=== PATIENT | female | born 1955 | race Caucasian/White ===

== ENCOUNTER → 2018-01-12 | Outpatient (CLI) | payer OTHER ==
[~2018-01-12] MED LIST: ASCO10003 PO; ATOR-24 PO; BUPR-79 PO; CHN/1 PO; CHOL100010 PO; FRS/40 PO; GLC/500 PO; MONT1TAB5 PO; MULT-506 PO; NIAC500T11 PO; OMEG10007 PO; PRLSR20 PO; RANI300T2 PO; ROPI1TAB PO; TRAZ50TA35 PO; VITACAP37 PO
== END | disposition home or self-care (01) ==
LOC: C.CPL 14:15
PROVIDERS: ATTEND Orthopaedic Surgery Sports Medicine
DX: S83.232D Complex tear of medial meniscus, current injury, left knee, subsequent encounter (principal); X58.XXXD Exposure to other specified factors, subsequent encounter

== ENCOUNTER 2023-06-05 06:08 | Inpatient (IN) ==
--- NOTE | 2023-05-11 11:25 | PAT Medication Instructions ---
Medication Instructions Date of Service May 11, 2023 Home Medications albuterol sulfate 90 mcg/actuation breath activated powder inhaler,sensor 2 inh inhalation Q6H PRN Wheezing amitriptyline 50 mg tablet 50 mg PO HS ascorbic acid (vitamin C) 1,000 mg tablet (Vitamin C) 2,000 mg PO QAM atorvastatin 80 mg tablet (Lipitor) 80 mg PO PM bupropion HCl 300 mg 24 hr tablet, extended release 300 mg PO QAM fluticasone propionate 50 mcg/actuation nasal spray,suspension 2 spray intran walt QAM furosemide 40 mg tablet 40 mg PO QAM montelukast 10 mg tablet 10 mg PO QAM multivitamin 1 tab PO QAM omeprazole 20 mg tablet,delayed release 20 mg PO BID ropinirole 1 mg tablet 1 mg PO HS vitamin B complex 1 tab PO QAM vitamin E 268 mg (400 unit) capsule 400 unit PO BID acetaminophen 500 mg tablet (Tylenol Extra Strength) 1,000 mg PO Q8 PRN Pain fluticasone furoate 100 mcg-vilanterol 25 mcg/dose inhalation powder (Breo Ellipta) 1 inh inhalation QAM lutein 20 mg-zeaxanthin 1,000 mcg capsule 1 cap PO QAM niacin 500 mg tablet 500 mg PO BID omega-3 fatty acids-fish oil 684 mg-1,200 mg capsule,delayed release 1 cap PO BID varenicline 1 mg tablet (Chantix) 1 mg PO BID MEDICATION INSTRUCTIONS: Continue as directed albuterol sulfate 90 mcg/actuation breath activated powder inhaler,sensor 2 inh inhalation Q6H PRN Wheezing (use if needed; BRING TO HOSPITAL) fluticasone furoate 100 mcg-vilanterol 25 mcg/dose inhalation powder (Breo Ellipta) 1 inh inhalation QAM fluticasone propionate 50 mcg/actuation nasal spray,suspension 2 spray intranasal QAM STOP taking 2 weeks before surgery omega-3 fatty acids-fish oil 684 mg-1,200 mg capsule,delayed release 1 cap PO BID vitamin E 268 mg (400 unit) capsule 400 unit PO BID lutein 20 mg-zeaxanthin 1,000 mcg capsule 1 cap PO QAM STOP taking 24 hours before surgery niacin 500 mg tablet 500 mg PO BID DO NOT take the morning of surgery ascorbic acid (vitamin C) 1,000 mg tablet (Vitamin C) 2,000 mg PO QAM multivitamin 1 tab PO QAM furosemide 40 mg tablet 40 mg PO QAM vitamin B complex 1 tab PO QAM varenicline 1 mg tablet (Chantix) 1 mg PO BID Take morning of surgery With a small sip of water, OTHERWISE NOTHING TO EAT OR DRINK AFTER MIDNIGHT: bupropion HCl 300 mg 24 hr tablet, extended release 300 mg PO QAM omeprazole 20 mg tablet,delayed release 20 mg PO BID acetaminophen 500 mg tablet (Tylenol Extra Strength) 1,000 mg PO Q8 PRN Pain (if needed) Take evening before surgery ropinirole 1 mg tablet 1 mg PO HS atorvastatin 80 mg tablet (Lipitor) 80 mg PO PM omeprazole 20 mg tablet,delayed release 20 mg PO BID acetaminophen 500 mg tablet (Tylenol Extra Strength) 1,000 mg PO Q8 PRN Pain ( if needed) varenicline 1 mg tablet (Chantix) 1 mg PO BID Other Notes CHECK WITH PRESCRIBER FOR INSTRUCTIONS: amitriptyline 50 mg tablet 50 mg PO HS If you have any questions please call us at [phone] or [phone] or [phone] or [phone]
--- NOTE | 2023-05-22 10:50 | Anesthesiology Consultation ---
Date of Service May 22, 2023 Assessment & Plan (1) Encounter for pre-operative examination: - Check BSG AM DOS - Infectious disease screening: Per assessment on 05/22/23: No known infectious disease contacts or current infectious disease symptoms. No noted Covid positive test result in past 90 days. Chart Review Chart Review: Acceptable Risk for Surgery and Patient seen in Pre Admission Testing Teaching & Discussion Pre-Anesthesia Teaching/Discussion Notes: Instructed NPO after midnight before surgery,except medications with 15 cc of water. Medication instructions provided according to the PAT guidelines. History Surgery Operation Date: 06/05/23 10:05 Proposed Procedures p T10-12 Decompression, L1-S1 Hardware Removal, L1-S1 Instrumentation, Spinal Cord Monitoring - Chandana James, Height/Weight Height: 5 ft 4.5 in Weight: 104.9 kg Allergies Allergy/AdvReac Type Severity Reaction Status Date / Time morphine AdvReac Mild Migraines Verified 05/11/23 10:09 Medications Home Medications Medication Instructions Recorded Confirmed Last Taken albuterol sulfate 90 mcg/actuation 2 inh inhalation Q6H PRN Wheezing 01/05/21 05/11/23 02/09/21 10:00 breath activated powder inhaler,sensor amitriptyline 50 mg tablet 50 mg PO HS 01/05/21 05/11/23 02/09/21 22:00 ascorbic acid (vitamin C) 1,000 mg 2,000 mg PO QAM 01/05/21 05/11/23 02/09/21 08:00 tablet (Vitamin C) atorvastatin 80 mg tablet (Lipitor) 80 mg PO PM 01/05/21 05/11/23 02/09/21 22:00 bupropion HCl 300 mg 24 hr tablet, 300 mg PO QAM 01/05/21 05/11/23 02/09/21 08:00 extended release fluticasone propionate 50 2 spray intranasal QAM 01/05/21 05/11/23 02/09/21 08:00 mcg/actuation nasal spray,suspension furosemide 40 mg tablet 40 mg PO QAM 01/05/21 05/11/23 02/09/21 08:00 montelukast 10 mg tablet 10 mg PO QAM 01/05/21 05/11/23 02/09/21 08:00 multivitamin 1 tab PO QAM 01/05/21 05/11/23 02/09/21 08:00 omeprazole 20 mg tablet,delayed 20 mg PO BID 01/05/21 05/11/23 02/09/21 22:00 release ropinirole 1 mg tablet 1 mg PO HS 01/05/21 05/11/23 02/09/21 22:00 vitamin B complex 1 tab PO QAM 01/05/21 05/11/23 02/09/21 08:00 vitamin E 268 mg (400 unit) capsule 400 unit PO BID 01/05/21 05/11/23 01/27/21 acetaminophen 500 mg tablet 1,000 mg PO Q8 PRN Pain 05/11/23 05/11/23 Unknown (Tylenol Extra Strength) fluticasone furoate 100 1 inh inhalation QAM 05/11/23 05/11/23 Unknown mcg-vilanterol 25 mcg/dose inhalation powder (Breo Ellipta) lutein 20 mg-zeaxanthin 1,000 mcg 1 cap PO QAM 05/11/23 05/11/23 Unknown capsule niacin 500 mg tablet 500 mg PO BID 05/11/23 05/11/23 Unknown omega-3 fatty acids-fish oil 684 1 cap PO BID 05/11/23 05/11/23 Unknown mg-1,200 mg capsule,delayed release varenicline 1 mg tablet (Chantix) 1 mg PO BID 05/11/23 05/11/23 Unknown Past Medical History Medical History Hypertension Obesity IBS (irritable bowel syndrome) Arthritis GERD (gastroesophageal reflux disease) controlled Diabetes mellitus, type 2 Currently diet controlled (hx Metformin) Depression Anxiety Migraine Hx Restless leg syndrome Hyperlipidemia Chronic obstructive pulmonary disease stable CKD (chronic kidney disease) stage 3, GFR 30-59 ml/min Scoliosis of lumbosacral spine Exercise / Class Metabolic Activity III < 4 Walking/Shop/Light housework Past Family History Family History Other No family history of adverse response to anesthesia No known health problems Past Surgical History Surgical History History of esophagogastroduodenoscopy (EGD) S/P total knee replacement Left TKA (02/10/21): SAB x1 attempt + PNB at [facility] History of tonsillectomy History of adenoidectomy History of hysterectomy TATE with BSO History of back surgery L1-S1 decompression/fusion (05/26/16): Grade 1 view, MAC#3, ETT 7.0 at [facility] History of colonoscopy Past Anesthesia History No Hx of Anesthesia Complications and No Family Hx of Anesthesia Complications History of PONV No Hx of PONV and Hx of Motion Sickness (Occasional) Social History Smoking Status: Former smoker Do You Dip or Chew Tobacco: No Smoking End Date: Quit 03/2023 Hx Alcohol Use: No Hx Substance Use: No Review of Systems Occasional wheezing r/t asthma Patient denies chest pain, shortness of breath, fever, chills, cough, palpitations. Physical Exam Vital Signs VITALS BP 112/73 P 91 TEMP 98.3 SP02 95%RA RESP 18 PHYSICAL Full cervical extension range of motion. Full TMJ range of motion. TMD 3.5 finger breaths Mallampati Score 2 Dentition: upper/lower partials Lungs: clear throughout to auscultation Cardiac: regular rate and rhythm, I/ systolic murmur Spine: normal Carotid arteries: negative bruit Extremities: no LE edema Lab Results Anesthesia Preop Results Results Anesthesia Widget: WBC 8.46 K/ul (4.8-10.8) 05/22/23 Hgb 12.7 g/dl (12.0-16.0) 05/22/23 Hct 36.9 % (37.0-47.0) L 05/22/23 Plt 240 K/uL (130-400) 05/22/23 Na 140 mmol/L (136-145) 05/22/23 K 4.1 mmol/L (3.5-5.1) 05/22/23 Cl 105 mmol/L (98-107) 05/22/23 CO2 28 mmol/L (21-32) 05/22/23 BUN 19 mg/dl (6-23) 05/22/23 Creat 0.99 mg/dl (0.6-1.2) 05/22/23 Glucose Level 90 mg/dl (70-99(Fasting)) 05/22/23 PT 10.8 Seconds (9.0-12.0) 05/22/23 PTT 24.8 Seconds (21.0-31.0) 05/22/23 INR 1.0 (0.9-1.1) 05/22/23 HA1c 6.2 % (4.5-5.6) H 05/22/23 Urine Color Yellow 05/22/23 Urine Appearance Clear (Clear) 05/22/23 Urine pH 7.0 (4.5-7.5) 05/22/23 Urine Specific [place] 1.007 (1.000-1.030) 05/22/23 Urine Protein Negative (Negative) 05/22/23 Urine Glucose (UA) Negative (Negative) 05/22/23 Urine Ketones Negative (Negative) 05/22/23 Urine Blood Negative (Negative) 05/22/23 Urine Nitrite Negative (Negative) 05/22/23 Urine Bilirubin Negative (Negative) 05/22/23 Urine Urobilinogen Negative (Negative) 05/22/23 Urine Leukocyte Esterase 1+ (Negative) H 05/22/23 Urine WBC (Auto) 1-5 /hpf (0-5) 05/22/23 Urine RBC (Auto) 5-10 /hpf (0-4) H 05/22/23 Urine Hyaline Casts (Auto) 0 /lpf (0-5) 05/22/23 Urine Epithelial Cells (Auto) 5-10 /lpf (0-5) H 05/22/23 Urine Bacteria (Auto) 4+ (Negative) H 05/22/23 Blood Type B Positive 05/22/23 Antibody Screen NEGATIVE 05/22/23 Testing Laboratory Results Surgeon's office made aware of abnormal UA* Electrocardiogram Date: 05/22/23 NSR at 91bpm. Echocardiogram Date: 04/05/17 LVEF 55-59%. LV wall motion is normal. Borderline increased concentric LV wall thickness. Grade 1 diastolic dysfunction. No significant valvular disease. Other Testing Chest CT Date: 01/19/23 Moderate calcification of the thoracic aorta. Degenerative changes of the spine. Partially imaged lumbar spinal fixation hardware. Scattered centrilobular nodules and tree-in-bud opacities in the upper lung zones, probably related to smoking related interstitial lung disease such as RB-ILD. Mild emphysema. Mild linear scarring in the left midlung. Recommendations: Continued routine annual CT lung cancer screening.
[~2023-06-05 06:08] MED LIST changes: +ACETAMINOPHEN 500 MG TAB PO SCH; -ASCO10003 PO; -ATOR-24 PO; -BUPR-79 PO; -CHN/1 PO; -CHOL100010 PO; +CeleBREX 200 MG CAP PO SCH; -FRS/40 PO; +GABAPENTIN 300 MG CAP PO SCH; -GLC/500 PO; +LR 15ML/HR IV SCH; +LR 60ML/HR IV SCH; -MONT1TAB5 PO; -MULT-506 PO; -NIAC500T11 PO; -OMEG10007 PO; -PRLSR20 PO; -RANI300T2 PO; -ROPI1TAB PO; -TRAZ50TA35 PO; -VITACAP37 PO
--- OUTSIDE RECORDS SUMMARY | 2023-06-05 06:14 | External Medical Summary | Summary of Care ---
Author Name Unknown Organization [facility] [address] [address] Phone [phone] Care Team Providers Care Reed Man Name Role Phone Mc South MD Primary Care Provide r Reason for Visit * Reason Comments Physical-Exam Encounter Details Date Type Department Care Team (Latest Contact Info) Description 05/24/2023 10:00 AM EST Office Visit Family Medicine [address] [phone] Nhung Haddad, REBA [address] [place] [address] [place] [address] Preop examination*; Pre-operative cardiovascular examination; Urinary tract infection without hematuria, site unspecified Allergies Active Allergy Reactions Criticality Noted Date Comments Morphine Sulfate Low 09/09/2010 migraines documented as of this encounter (statuses as of 05/24/2023) Medications Medication Sig Dispensed Refills Start Date End Date Status MULTIVITAMINS PO TABS one by mouth daily 0 Active VITAMIN B COMPLEX PO CAPS one by mouth daily 0 Active vitamin e 100 UNIT Capsule Take 1 Capsule by mouth in the morning. 0 Active Lutein-Zeaxanthi n 25-5 MG CAPS Take by mouth every morning. 0 Active Ibuprofen 800 MG Oral Tablet (Motrin)Indicati ons:Painful respiration TAKE ONE TABLET BY MOUTH THREE TIMES A DA Y WITH FOOD NEEDED FOR PAIN 90 Tab 1 03/04/2021 Active Fish Oil 1000 MG Oral Capsule Take 1 Capsule by mouth in the morning and 1 Capsule before bedtime. 0 Active Vitamin C 100 MG Oral Tablet Chewable Take 1 Tablet by mouth in the morning. 0 Active Fluticasone Furoate-Vilanter ol 100-25 MCG/ACT Inhalation Aerosol Powder Breath Activated (BREO ellipta)Indicati ons:Moderate COPD (chronic obstructive pulmonary disease) ([facility]) INHALE ONE PUFF BY MOUTH IN THE MORNING 180 Each 3 12/23/2022 4 Active Albuterol Sulfate HFA 108 (90 Base) MCG/ACT Inhalation Aerosol SolutionIndicati ons:Moderate COPD (chronic obstructive pulmonary disease) ([facility]) INHALE TWO PUFFS BY MOUTH EVERY 4 HOURS NEEDED FOR WHEEZING 54 g 3 12/23/2022 4 Active Fluticasone Propionate 50 MCG/ACT Nasal Suspension (Flonase)Indicat ions:Chronic rhinitis ADMINISTER 2 SPRAYS INTO EACH NOSTRIL IN THE MORNING 48 g 5 04/22/2022 3 Active Atorvastatin Calcium 80 MG Oral Tablet (Lipitor)Indicat ions:Metabolic syndrome Take 1 Tablet by mouth at bedtime. 90 Tablet 3 03/09/2023 Active rOPINIRole HCl 1 MG Oral Tablet (Requip)Indicati ons:Periodic limb movement disorder TAKE 1 TABLET BY MOUTH DAILY BEFORE BEDTIME FOR RESTLESS 90 Tablet 1 04/05/2023 4 Active Furosemide 40 MG Oral Tablet (Lasix)Indicatio ns:Edema TAKE ONE TABLET BY MOUTH EVERY DAY NEEDED FOR FLUID ACCUMULATION OR WEIGHT GAIN 90 Tablet 0 04/05/2023 4 Active Omeprazole 20 MG Oral Capsule Delayed Release (PriLOSEC) TAKE ONE CAPSULE BY MOUTH EVERY MORNING AND 1 CAPSULE BEFORE BEDTIME 180 Capsule 0 04/05/2023 4 Active buPROPion HCl ER (XL) 300 MG Oral Tablet Extended Release 24 Hour (Wellbutrin XL)Indications:D epression TAKE ONE TABLET BY MOUTH EVERY MORNING 90 Tablet 0 04/05/2023 4 Active Montelukast Sodium 10 MG Oral Tablet (Singulair)Indic ations:Moderate COPD (chronic obstructive pulmonary disease) ([facility]) TAKE ONE TABLET BY MOUTH EVERY MORNING 90 Tablet 0 04/05/2023 4 Active Amitriptyline HCl 50 MG Oral Tablet (Elavil)Indicati ons:Persistent insomnia,Migrain e variant TAKE ONE TABLET BY MOUTH EVERY DAY BEFORE BEDTIME 90 Tablet 0 04/05/2023 4 Active Niacin 500 MG Oral Tablet (Niacin) Take 1 Tablet by mouth 2 times a day with morning and evening meals. 0 05/24/2023 Active Varenicline Tartrate(Continu e) 1 MG Oral Tablet Take 1 mg by mouth in the morning and 1 mg in the evening. 60 Tablet 1 05/24/2023 Active Sulfamethoxazole -Trimethoprim 800-160 MG Oral Tablet (Bactrim DS)Indications:U rinary tract infection without hematuria, site unspecified Take 1 Tablet by mouth in the morning and 1 Tablet before bedtime. Do all this for 7 days. Until gone. 14 Tablet 0 05/24/2023 3 Active Benzonatate 100 MG Oral CapsuleIndicatio ns:Bronchitis, complicated Take 1 Capsule by mouth 3 times a day as needed for Cough. 30 Capsule 1 11/04/2022 3 Discontinue d(Patient preference/ discontinua tion) predniSONE 20 MG Oral Tablet (Deltasone)Indic ations:Moderate COPD (chronic obstructive pulmonary disease) ([facility]) 1 tab 3 times a day for 3 days, then 1 tab 2 times a day for 3 days, then 1 tab daily for 3 days 18 Tablet 0 12/23/2022 3 Discontinue d(Patient preference/ discontinua tion) Varenicline Tartrate (Starter) 0.5 MG X 11 & 1 MG X 42 Tablet Therapy Pack Take 0.5 mg twice daily for 3 days, then 0.5 mg twice daily for 4 days and then 1 mg twice daily 53 Each 0 04/26/2023 3 Discontinue d(Patient preference/ discontinua tion) Varenicline Tartrate(Continu e) 1 MG Oral Tablet Take 1 mg by mouth in the morning and 1 mg in the evening. 60 Tablet 1 04/26/2023 3 Discontinue d(Refill) documented as of this encounter (statuses as of 05/24/2023) Active Problems Problem Noted Date Diagnosed Date Severe obesity with body mas s index (BMI) of 35.0 to 39.9 with serious comorbidity 12/17/2021 History of colon polyps 12/06/2021 Moderate episode of recurrent major depressive d isorder 06/04/2019 Gastroesophageal reflux disease 07/21/2017 Postmenopausal atrophic vaginitis 07/21/2017 Persistent insomnia 02/16/2015 IBS (irritable bowel syndrome) 01/16/2015 Hypertriglyceridemia 08/19/2013 Periodic limb movement disorder 03/18/2011 Metabolic syndrome 04/08/2010 Macular degeneration 02/03/2010 VARIANTS OF MIGRAINE WITHOUT MENTION OF INTRACTABLE MIGRAINE 03/02/2006 Lumbar disc disease Hyperlipidemia with target LDL less than 100 Overview: ICD-10 update of inactive term Tobacco use disorder Moderate COPD (chronic obstructive pulmonary dis ease) documented as of this encounter (statuses as of 05/24/2023) Resolved Problems Problem Noted Date Diagnosed Date Resolved Date Stage 3a chronic kidney disease 12/23/2022 01/05/2023 Prediabetes 11/17/2021 07/07/2022 Kidney disease, chronic, sta ge III (GFR 30-59 ml/min) 07/07/2014 01/05/2023 Kidney disease, chronic, sta ge III (GFR 30-59 ml/min) 08/19/2013 01/20/2014 Overview: Per CKD protocol #1 Body mass index (BMI) of 40.0-44.9 in adult 04/08/2010 01/25/2016 Overview: ICD-10 update of inactive term Dyslipidemia, goal LDL below 130 04/08/2010 09/11/2013 MEDICATION USE AGREEMENT 04/08/201012/2013 Obesity, morbid (more than 1 00 lbs over ideal weight or BMI > 40) 09/22/2009 04/08/2010 Overview: Per Obesity Taxonomy ICD-10 update of inactive term Dyslipidemia, goal to be determined 06/09/2009 09/17/2009 Overview: Per Lipid Taxonomy. Obesity, BMI not known 09/04/200809/22 Overview: Per Obesity Taxonomy Benign neoplasm of colon 12/17/2007 Overview: hyperplastic/repeat colonoscopy in 1 yr Tobacco use disorder 09/08/2007 009 Depression 03/02/2006 06/04/2019 Mixed dyslipidemia 9 Overview: Per Lipid Taxonomy. Colon polyps 12/06/2021 Bronchospasm 06/14/2021 documented as of this encounter (statuses as of 05/24/2023) Immunizations Name Administration Dates Next Due COVID-19 mRNA, LNP-s, No Pre serve, 2-Dose Series (Moderna) 01/07/2022,05/19/2021,10/09/2020,09/11 COVID-19, MRNA-LNP, 23-24, P F, 30 MCG/0.3 mL, 12 YRS AND ABOVE, [facility] 04/18/2023 Covid-19, Mrna, Lnp-s, Pf, B ivalent, 50 Mcg, IM, 12 yrs and above (Moderna) 04/25/2022 Pneumococcal Conjugate Vacc, 13 Valent (Prevnar) 08/02/2016 Pneumococcal Conjugate Vacci ne, 20-valent ([id number]) 12/17/2021 Pneumococcal Polysaccharide PPV23 (Pneumovax) 01/03/2012 SEASONAL INFLUENZA, PF, 6 M & Above, IM , (FLULAVAL or FLUZONE) 04/03/2020,04/19/2018,04/04/2017 Seasonal Influenza Virus Vac cine, Unspecified Formulation 03/27/2019 Seasonal Influenza, Quadriva lent Hd (Fluzone Hd) 04/01/2023,04/22/2022,06/14/2021 Seasonal Influenza, Quadriva lent, No Preserve, IM 03/30/2016 Seasonal Influenza, Split, I IV3, With Preserve, Inj 03/17/2015,04/18/2014,03/21/2013,03/18,04/26/2010,03/19/2009,05/02/2008 TDAP (age 10 and older)(Boostrix) 01/04/2018 TDAP (age 11 and older)(Adacel) 12/21/2007 Varicella Zoster Vaccine (Adult) 01/25/2016 Zoster Vaccine Recombinant (Shingrix) 11/09/2018 ,05/14/2018 documented as of this encounter Social History Tobacco Use Types Packs/Day Years Used Date Smoking Tobacco: Some Days Cigarettes 1 33 Smokeless Tobacco: Never Tobacco Cessation:Ready to Q uit: Not Asked; Counseling Given: Not Answered Comments:Trying to quit. About 3/4 PPD now 06/21/22 Alcohol Use Standard Drinks/Week Comments No 0 (1 standard drink = 0.6 oz pur e alcohol) PHQ-2 Answer Date Recorded PHQ Adult Total Score 0 12/11/2020 Hunger Vital Sign Answer Date Recorded Within the past 12 months, y ou worried that your food would run out before you got the money to buy more. Never true 12/12/19 21 Within the past 12 months, t he food you bought just didn't last and you didn't have money to get more. Never true 12/11/2020 Sex and Gender Information Value Date Recorded Sex Assigned at Not on file Gender Identity Female 01/01/2023 12:59 PM EDT Sexual Orientation Not on file Job Start Date Occupation Industry Not on file Not on file Not on file documented as of this encounter Last Filed Vital Signs Vital Sign Reading Time Taken Comments Blood Pressure 136/64 05/24/2023 9:51 AM EST Pulse 74 05/24/2023 9:51 AM EST Temperature 36.2 C (97.1 F) 05/24/2023 9:51 AM ES T Respiratory Rate 18 05/24/2023 9:51 AM EST Oxygen Saturation - - Inhaled Oxygen Concentration - - Weight 100.7 kg (222 lb) 05/24/2023 9:51 AM EST Height 162.6 cm (5' 4") 05/24/2023 9:51 AM EST Body Mass Index 38.11 05/24/2023 9:51 AM EST documented in this encounter Progress Notes * Nhung Haddad PA-C - 05/24/2023 9:56 AM EST Nursing Notes: Olivia Norman, EN 05/24/23 [id number] Signed Pre-Op for Spine Surgery 06/05/23, also asking for refill of Chantix Pt here today for preop for spinal fusion. Surgery is scheduled for 06/05/23 - with Dr. James. Pt already had labs and EKG. All normal. Per urinalysis, she does have UTI. Start bactrim for a week. Review of patient's allergies indicates: Allergen Reactions Morphine Sulfate migraines Current Outpatient Medications Medication Sig Dispense Refill Atorvastatin Calcium 80 MG Oral Tablet (Lipitor) Take 1 Tablet by mouth at bedtime. 90 Tablet 3 rOPINIRole HCl 1 MG Oral Tablet (Requip) TAKE 1 TABLET BY MOUTH DAILY BEFORE BEDTIME FOR RESTLESS 90 Tablet 1 Furosemide 40 MG Oral Tablet (Lasix) TAKE ONE TABLET BY MOUTH EVERY DAY NEEDED FOR FLUID ACCUMULATION OR WEIGHT GAIN 90 Tablet 0 Omeprazole 20 MG Oral Capsule Delayed Release (PriLOSEC) TAKE ONE CAPSULE BY MOUTH EVERY MORNING AND 1 CAPSULE BEFORE BEDTIME 180 Capsule 0 buPROPion HCl ER (XL) 300 MG Oral Tablet Extended Release 24 Hour (Wellbutrin XL) TAKE ONE TABLET BY MOUTH EVERY MORNING 90 Tablet 0 Montelukast Sodium 10 MG Oral Tablet (Singulair) TAKE ONE TABLET BY MOUTH EVERY MORNING 90 Tablet 0 Amitriptyline HCl 50 MG Oral Tablet (Elavil) TAKE ONE TABLET BY MOUTH EVERY DAY BEFORE BEDTIME 90 Tablet 0 MULTIVITAMINS PO TABS one by mouth daily VITAMIN B COMPLEX PO CAPS one by mouth daily vitamin e 100 UNIT Capsule Take 1 Capsule by mouth in the morning. Lutein-Zeaxanthin 25-5 MG CAPS Take by mouth every morning. Ibuprofen 800 MG Oral Tablet (Motrin) TAKE ONE TABLET BY MOUTH THREE TIMES A DA Y WITH FOOD NEEDED FOR PAIN 90 Tab 1 Fish Oil 1000 MG Oral Capsule Take 1 Capsule by mouth in the morning and 1 Capsule before bedtime. Vitamin C 100 MG Oral Tablet Chewable Take 1 Tablet by mouth in the morning. Benzonatate 100 MG Oral Capsule Take 1 Capsule by mouth 3 times a day as needed for Cough. 30 Capsule 1 predniSONE 20 MG Oral Tablet (Deltasone) 1 tab 3 times a day for 3 days, then 1 tab 2 times a day for 3 days, then 1 tab daily for 3 days 18 Tablet 0 Fluticasone Furoate-Vilanterol 100-25 MCG/ACT Inhalation Aerosol Powder Breath Activated (BREO ellipta) INHALE ONE PUFF BY MOUTH IN THE MORNING 180 Each 3 Albuterol Sulfate HFA 108 (90 Base) MCG/ACT Inhalation Aerosol Solution INHALE TWO PUFFS BY MOUTH EVERY 4 HOURS NEEDED FOR WHEEZING 54 g 3 Fluticasone Propionate 50 MCG/ACT Nasal Suspension (Flonase) ADMINISTER 2 SPRAYS INTO EACH NOSTRIL IN THE MORNING 48 g 5 Varenicline Tartrate(Continue) 1 MG Oral Tablet Take 1 mg by mouth in the morning and 1 mg in the evening. 60 Tablet 1 No current facility-administered medications for this visit. Past Medical History: Diagnosis Date Benign neoplasm of colon 12/17/07 hyperplastic/repeat colonoscopy in 1 yr Benign neoplasm of colon 12/10/10 adenomatous tissue Bronchospasm Colon polyps 02/14/2014 adenomatous polyps, repeat 3 yrs Depressive disorder, not elsewhere classified Dysmetabolic syndrome X Endometriosis of other specified sites 1988 hysterectomy,abd Examination of eyes and vision 09/11/13 no diabetic retinopathy Hyperlipidemia LDL goal < 100 Lumbar disc disease Macular degeneration (senile) of retina, unspecified Migraine variant Mixed dyslipidemia Moderate COPD (chronic obstructive pulmonary disease) ([facility]) Tobacco use disorder Social History Socioeconomic History Marital status: Spouse name: Not on file Number of children: 1 Years of education: Not on file Highest education level: Not on file Occupational History Occupation: laborer concrete paving Employer: [employer] [address] Tobacco Use Smoking status: Some Days Packs/day: 1.00 Years: 33.00 Additional pack years: 0.00 Total pack years: 33.00 Types: Cigarettes Smokeless tobacco: Never Tobacco comments: Trying to quit. About 3/4 PPD now 06/21/22 Vaping Use Vaping Use: Never used Substance and Sexual Activity Alcohol use: No Drug use: No Sexual activity: Yes control/protection: Surgical Other Topics Concern Service Not Asked Blood Transfusions No Caffeine Concern Not Asked Occupational Exposure Not Asked Hobby Hazards Not Asked Sleep Concern Not Asked Stress Concern Not Asked Weight Concern Not Asked Special Diet Not Asked Back Care Not Asked Exercise Not Asked Bike Helmet Not Asked Seat Belt Not Asked Self-Exams Not Asked Social History Narrative Not on file Social Determinants of Health Financial Resource Strain: Not on file Food Insecurity: No Food Insecurity (12/11/2020) Hunger Vital Sign Worried About Running Out of Food in the Last Year: Never true Ran Out of Food in the Last Year: Never true Transportation Needs: Not on file Physical Activity: Not on file Stress: Not on file Social Connections: Not on file Intimate Partner Violence: Not on file Housing Stability: Not on file Past Surgical History: Procedure Laterality Date COLONOSCOPY W/ BLEEDING CONTROL 12/17/2007 hyperplastic, repeat in 1 year COLONOSCOPY W/ LESION REMOVAL, SNARE 12/10/2010 adenomatous tissue COLONOSCOPY W/ SUBMUCOUS INJ 12/10/2010 COLONOSCOPY, DIAGNOSTIC (RECTUM) 02/14/2014 adenomatous polyps, repeat 3 yrs/COLONOSCOPY FLEXIBLE PROXIMAL DIAGNOSTIC performed by Ruben Arellano MD at [facility] COLONOSCOPY, DIAGNOSTIC (RECTUM) 05/26/2017 adenomatous & hyperplastic polyps, repeat 5 yrs/COLONOSCOPY FLEXIBLE PROXIMAL DIAGNOSTIC performed by Ruben Arellano MD at [facility] COLONOSCOPY, DIAGNOSTIC (RECTUM) 06/23/2022 benign adenomatous polyps, repeat 3 yrs / COLONOSCOPY FLEXIBLE PROXIMAL DIAGNOSTIC performed by Ruben Arellano MD at [facility] EGD, FLEXIBLE, DIAGNOSTIC 05/10/2013 UPPER GI ENDOSCOPY DIAGNOSTIC performed by Lauren Villela DO at [facility]COPY [facility] INJECTION LUMBAR/SACRAL 06/22/2015 INJECTION SPINE LUMBAR OR SACRAL performed by Spike B Cousins, DO at OR [facility] INJECTION LUMBAR/SACRAL 07/17/2015 INJECTION SPINE LUMBAR OR SACRAL performed by Spike B Cousins, DO at OR [facility] INJECTION LUMBAR/SACRAL 10/09/2015 INJECTION SPINE LUMBAR OR SACRAL performed by [facility] Cousins, DO at OR [facility] INJECTION LUMBAR/SACRAL 02/26/2016 INJECTION SPINE LUMBAR OR SACRAL performed by [facility] Cousins, DO at [facility] MAMMOGRAM SCREENING BILATERAL 10/10/2013 almost entirely fat, category 1 normal MAMMOGRAM SCREENING BILATERAL Bilateral 11/03/2016 almost entirely fat, category 2 CT TOTAL KNEE ARTHROPLASTY Left 02/10/2021 Dr. Condon [facility] REMOVAL OF UTERUS LESION 1988 abd hysterectomy REMOVE TONSILS & ADENOIDS, UNDER 12 SPINAL FUSION, LUMBAR, COMBINED 06/02/2016 [facility] TOTAL ABD HYSTERECTOMY W/WO REMOVAL OF TUBE(S) Family History Problem Relation Age of Onset Hypertension Mother Eye Problems Mother AMD Dementia Mother Cancer Father bladder Hypertension Father Hypertension Brother Glaucoma Other (Paternal) O:Blood pressure 136/64, pulse 74, temperature 36.2 C (97.1 F), resp. rate 18, height 1.626 m (5' 4"), weight 100.7 kg (222 lb). GENERAL: alert, healthy, and no distress NECK: supple, no adenopathy, no bruits, thyroid normal size, non-tender, without nodularity EYES: PERRLA, conjunctiva are pink and non-injected, sclera clear EARS: External ears normal, Canals clear, TM's Normal NOSE: no mucosal erythema, no mucosal edema, no purulent discharge OROPHARYNX: no exudate, no erythema, lips, buccal mucosa, and tongue normal, and mucous membranes are moist HEART: regular rate & rhythm, no murmur, and no gallops LUNGS: chest symmetric with normal AP diameter, no chest deformities noted, no chest wall tenderness, lungs clear to auscultation ABDOMEN: abdomen soft, non-tender, normal bowel sounds, and no masses or organomegaly A:Preop examination (Primary) Pre-operative cardiovascular examination - EKG Urinary tract infection without hematuria, site unspecified - Sulfamethoxazole-Trimethoprim 800-160 MG Oral Tablet (Bactrim DS); Take 1 Tablet by mouth in the morning and 1 Tablet before bedtime. Do all this for 7 days. Until gone. Other orders - Varenicline Tartrate(Continue) 1 MG Oral Tablet; Take 1 mg by mouth in the morning and 1 mg in the evening. Start bactrim. Pt cleared for surgery. Any questions/problems, please call. If anything changes, worsens, develops new sx, please call [facility]. Follow Up: Return if symptoms worsen or fail to improve. Nhung Haddad PA-C documented in this encounter Nursing Notes * Olivia Norman RN - 05/24/2023 9:51 AM EST Pre-Op for Spine Surgery 06/05/23, also asking for refill of Chantix documented in this encounter Plan of Treatment Upcoming Encounters Date Type Department Care Team (Late st Contact Info) Description 06/27/2023 8:40 AM EST Office Visit Family Medicine [address] [place] [phone] Nhung Haddad PA-C [address] [place] [address] [place] [id number] 12/25/2023 10:00 AM EDT Imaging Radiology [address] [place] [id number] 12/25/2023 11:00 AM EDT Office Visit Family Medicine [place] [address] [place] [phone] Mc South MD [address] [place] [address] [place] [id number] Scheduled Orders Name Type Priority Associated Diagnoses Orde r Schedule EKG EKG Routine Pre-operative cardiovascular examination Ordered: 05/24/2023 Scheduled Procedures Name Priority Associated Diagnoses Date/Ti me COLONOSCOPY FLEXIBLE PROXIMAL DIAGNOSTIC Recall History of colon polyps Health Maintenance Due Date Last Done Comments DISCUSS TOBACCO CESSATION (REFER TO SMARTSET #[id number]) 1955 Alpha-1 Antitrypsin 1973 Depression Screening 12/11/2021 12/11/2020 O2 ASSESSMENT COMPLETED IN PAST YEAR FOR COPD 06/23/2023 06/23/2022 Mammogram 12/24/2023 12/23/2022, 11/25, 12/11/2020, Additional history exists DXA Scan 06/14/2025 06/14/2021 COLONOSCOPY-EVERY 3 YRS AGES 18-100 06/23/2025 06/23/2022, 06/23/2022, 05/26/2017, Additional history exists Diabetes Screening 12/23/2025 12/23/2022, 1 08/22/2021, 11/15/2021, Additional history exists Lipid Panel 12/24/2027 12/23/2022, 10/25, 05/28/2021, Additional history exists DTaP,Tdap,and Td Vaccines (3 - Td or Tdap) 01/05/2028 01/04/2018, 12/21/2007 Zoster Vaccines Completed 11/09/2018, 04/26, 01/25/2016 Pneumococcal Vaccine: 65+ Years Completed 12/17/2021, 08/02/2016, 01/03/2012 COLONOSCOPY-EVERY 5 YRS AGES 18-100 Discontinued 06/23/2022, 06/23/2022, 05/26/2017, Additional history exists Albumin/Creatinine Ratio Discontinued 023, 11/15/2021, 09/28/2020, Additional history exists LUNG CANCER SCREENING - USE SMARTSET 44023 Completed 01/19/2023, 01/18/2022 Influenza Vaccine (FLU shot) Completed 04/01/2023, 04/22/2022, 06/14/2021, Additional history exists COVID-19 Vaccine Completed 04/18/2023, , 01/07/2022, Additional history exists GARDASIL-HPV IMMUNIZATION SERIES Aged Out No longer eligible based on patient's age to complete this topic Hepatitis B Aged Out No longer eligi ble based on patient's age to complete this topic MENINGOCOCCAL (MENACTRA/MENVEO) Aged Out No longer eligible based on patient's age to complete this topic documented as of this encounter Medical Devices Not on filedocumented as of this encounter Visit Diagnoses Diagnosis Preop examination- Primary Preoperative examination, unspecified Pre-operative cardiovascular examination Urinary tract infection without hematuria, site unspecified documented in this encounter Care Teams Reed Man Relationship Specialty Start Date End Date Mc South MD [address] [place] [address] [place] [id number] PCP - General Family Medicine 06/22/22 documented as of this encounter
[2023-06-05] MEDS ORDERED: ATROPINE SULFATE 0.1 MG/ML 10ML SYR IV PRN (07:08)
[2023-06-05] MEDS ORDERED: ONDANSETRON INJ 2 MG/ML 2 ML VIAL IV PRN ×2 (07:08→12:15)
[2023-06-05] MEDS ORDERED: ePHEDrine sulfate 50 MG/ML AMP IV PRN (07:08)
[2023-06-05] MEDS ORDERED: fentaNYL citrate PF 100 MCG/2 ML VIAL IV PRN (07:08)
[2023-06-05] MEDS ORDERED: LIDOCAINE 2% 2 ML VIAL/AMP(20MG/ML) INFIL ONE (07:13)
[2023-06-05] MEDS ORDERED: PROPOFOL IV EMULSION 10 MG/ML 20 ML VIAL IV ONE ×2 (07:13→09:11)
[2023-06-05] MEDS ORDERED: ROCURONIUM BROMIDE 10 MG/ML 5 ML VIAL IV ONE ×7 (07:13→08:53)
[2023-06-05] MEDS ORDERED: MIDAZOLAM HCL 1 MG/ML 2ML VIAL ONE (07:13)
[2023-06-05] MEDS ORDERED: fentaNYL citrate PF 100 MCG/2 ML VIAL ONE ×2 (07:14→10:28)
[2023-06-05] MEDS ORDERED: BUPIVACAINE/EPINEPHRINE 0.25% 1:200,000 30 ML VIAL ONE (07:15)
[2023-06-05] MEDS ORDERED: ceFAZolin 330 MG/ML 1 GM VIAL ONE (07:15)
--- NOTE | 2023-06-05 07:39 | History & Physical Report ---
Date of Service June 05, 2023 History of Present Illness Chief Complaint: Back and bilateral leg pain Primary Care Provider: Mc South MD This is a 67-year-old female who presents with above-mentioned diagnosis with failing since course of nonoperative care is here for surgical intervention. Allergies Allergy/AdvReac Type Severity Reaction Status Date / Time morphine AdvReac Mild Migraines Verified 06/05/23 06:32 Home Medications Medication Instructions Recorded Confirmed Type albuterol sulfate 90 mcg/actuation 2 inh inhalation Q6H PRN Wheezing 01/05/21 06/05/23 History breath activated powder inhaler,sensor amitriptyline 50 mg tablet 50 mg PO HS 01/05/21 06/05/23 History ascorbic acid (vitamin C) 1,000 mg 2,000 mg PO QAM 01/05/21 06/05/23 History tablet (Vitamin C) atorvastatin 80 mg tablet (Lipitor) 80 mg PO PM 01/05/21 06/05/23 History bupropion HCl 300 mg 24 hr tablet, 300 mg PO QAM 01/05/21 06/05/23 History extended release fluticasone propionate 50 2 spray intranasal QAM 01/05/21 06/05/23 History mcg/actuation nasal spray,suspension furosemide 40 mg tablet 40 mg PO QAM 01/05/21 06/05/23 History montelukast 10 mg tablet 10 mg PO QAM 01/05/21 06/05/23 History multivitamin 1 tab PO QAM 01/05/21 06/05/23 History omeprazole 20 mg tablet,delayed 20 mg PO BID 01/05/21 06/05/23 History release ropinirole 1 mg tablet 1 mg PO HS 01/05/21 06/05/23 History vitamin B complex 1 tab PO QAM 01/05/21 06/05/23 History vitamin E 268 mg (400 unit) capsule 400 unit PO BID 01/05/21 06/05/23 History acetaminophen 500 mg tablet 1,000 mg PO Q8 PRN Pain 05/11/23 06/05/23 History (Tylenol Extra Strength) fluticasone furoate 100 1 inh inhalation QAM 05/11/23 06/05/23 History mcg-vilanterol 25 mcg/dose inhalation powder (Breo Ellipta) lutein 20 mg-zeaxanthin 1,000 mcg 1 cap PO QAM 05/11/23 06/05/23 History capsule niacin 500 mg tablet 500 mg PO BID 05/11/23 06/05/23 History omega-3 fatty acids-fish oil 684 1 cap PO BID 05/11/23 06/05/23 History mg-1,200 mg capsule,delayed release varenicline 1 mg tablet (Chantix) 1 mg PO BID 05/11/23 06/05/23 History Past Med/Surg History Medical History Hypertension Obesity IBS (irritable bowel syndrome) Arthritis GERD (gastroesophageal reflux disease) controlled Diabetes mellitus, type 2 Currently diet controlled (hx Metformin) Depression Anxiety Migraine Hx Restless leg syndrome Hyperlipidemia Chronic obstructive pulmonary disease stable CKD (chronic kidney disease) stage 3, GFR 30-59 ml/min Scoliosis of lumbosacral spine Surgical History History of esophagogastroduodenoscopy (EGD) S/P total knee replacement Left TKA (02/10/21): SAB x1 attempt + PNB at [facility] History of tonsillectomy History of adenoidectomy History of hysterectomy TATE with BSO History of back surgery L1-S1 decompression/fusion (05/26/16): Grade 1 view, MAC#3, ETT 7.[address] [facility] History of colonoscopy Family History Other No family history of adverse response to anesthesia No known health problems Social History Smoking Status: Former smoker Tobacco Type: Cigarettes Smoking End Date: Quit 03/2023; Second Hand Exposure: Yes (SPOUSE SMOKES); Do You Dip or Chew Tobacco: No; Tobacco Cessation Education Requested by Patient: No Hx Alcohol Use: No Hx Substance Use: No Preferred Language: French Communication Ability: Effective Talent Scout Required: No Beliefs That Will Affect Care: None Current Living Situation: Spouse current occupational status: employed Other Information That Helps Us Care for You: No Feels Safe at Home: Yes Safety Concerns: Feels Safe At This Time Assistive Devices: Brace/Splint/Immobilizer, Cane, Denture - Upper, Denture - Lower and Glasses Assistive Devices Comment: cane for long distance. Physical Exam Physical Exam: Patient is alert and oriented Heart regular rhythm Lungs clear Results & Data Results & Data Vital Signs (Past 12 Hours) Vital Signs Temp Pulse Resp BP Pulse Ox O2 Del Method 06/05/23 06:25 36.7 C 111 H 20 159/76 H 99 Room Air
--- NOTE | 2023-06-05 07:39 | History & Physical Bridge Note ---
Date of Service June 05, 2023 History & Physical Bridge Note I have examined the patient, reviewed the History & Physical and in the interval since the performance of the History & Physical I have noted the following changes of clinical significance: no changes noted
--- NOTE | 2023-06-05 07:52 | History & Physical Report ---
Date of Service June 05, 2023 Assessment & Plan (1) Neurogenic claudication due to lumbar spinal stenosis: Plan: T10-T12 decompression and fusion, hardware removal L1-S1 with reinstrumentation L1-S1 History of Present Illness Chief Complaint: Back and bilateral leg pain Primary Care Provider: Mc oSuth MD This is a 67-year-old female who presents for persistent back and bilaterally pain and failing since course of nonoperative care she is here for surgical invention. Allergies Allergy/AdvReac Type Severity Reaction Status Date / Time morphine AdvReac Mild Migraines Verified 06/05/23 06:32 Home Medications Medication Instructions Recorded Confirmed Type albuterol sulfate 90 mcg/actuation 2 inh inhalation Q6H PRN Wheezing 01/05/21 06/05/23 History breath activated powder inhaler,sensor amitriptyline 50 mg tablet 50 mg PO HS 01/05/21 06/05/23 History ascorbic acid (vitamin C) 1,000 mg 2,000 mg PO QAM 01/05/21 06/05/23 History tablet (Vitamin C) atorvastatin 80 mg tablet (Lipitor) 80 mg PO PM 01/05/21 06/05/23 History bupropion HCl 300 mg 24 hr tablet, 300 mg PO QAM 01/05/21 06/05/23 History extended release fluticasone propionate 50 2 spray intranasal QAM 01/05/21 06/05/23 History mcg/actuation nasal spray,suspension furosemide 40 mg tablet 40 mg PO QAM 01/05/21 06/05/23 History montelukast 10 mg tablet 10 mg PO QAM 01/05/21 06/05/23 History multivitamin 1 tab PO QAM 01/05/21 06/05/23 History omeprazole 20 mg tablet,delayed 20 mg PO BID 01/05/21 06/05/23 History release ropinirole 1 mg tablet 1 mg PO HS 01/05/21 06/05/23 History vitamin B complex 1 tab PO QAM 01/05/21 06/05/23 History vitamin E 268 mg (400 unit) capsule 400 unit PO BID 01/05/21 06/05/23 History acetaminophen 500 mg tablet 1,000 mg PO Q8 PRN Pain 05/11/23 06/05/23 History (Tylenol Extra Strength) fluticasone furoate 100 1 inh inhalation QAM 05/11/23 06/05/23 History mcg-vilanterol 25 mcg/dose inhalation powder (Breo Ellipta) lutein 20 mg-zeaxanthin 1,000 mcg 1 cap PO QAM 05/11/23 06/05/23 History capsule niacin 500 mg tablet 500 mg PO BID 05/11/23 06/05/23 History omega-3 fatty acids-fish oil 684 1 cap PO BID 05/11/23 06/05/23 History mg-1,200 mg capsule,delayed release varenicline 1 mg tablet (Chantix) 1 mg PO BID 05/11/23 06/05/23 History Past Med/Surg History Medical History Hypertension Obesity IBS (irritable bowel syndrome) Arthritis GERD (gastroesophageal reflux disease) controlled Diabetes mellitus, type 2 Currently diet controlled (hx Metformin) Depression Anxiety Migraine Hx Restless leg syndrome Hyperlipidemia Chronic obstructive pulmonary disease stable CKD (chronic kidney disease) stage 3, GFR 30-59 ml/min Scoliosis of lumbosacral spine Surgical History History of esophagogastroduodenoscopy (EGD) S/P total knee replacement Left TKA (02/10/21): SAB x1 attempt + PNB at [facility] History of tonsillectomy History of adenoidectomy History of hysterectomy TATE with BSO History of back surgery L1-S1 decompression/fusion (05/26/16): Grade 1 view, MAC#3, ETT 7.0 at [facility] History of colonoscopy Family History Other No family history of adverse response to anesthesia No known health problems Social History Smoking Status: Former smoker Tobacco Type: Cigarettes Smoking End Date: Quit 03/2023; Second Hand Exposure: Yes (SPOUSE SMOKES); Do You Dip or Chew Tobacco: No; Tobacco Cessation Education Requested by Patient: No Hx Alcohol Use: No Hx Substance Use: No Preferred Language: Frisian Communication Ability: Effective Core Placer Required: No Beliefs That Will Affect Care: None Current Living Situation: Spouse current occupational status: employed Other Information That Helps Us Care for You: No Feels Safe at Home: Yes Safety Concerns: Feels Safe At This Time Assistive Devices: Brace/Splint/Immobilizer, Cane, Denture - Upper, Denture - Lower and Glasses Assistive Devices Comment: cane for long distance. Physical Exam Physical Exam: Patient is alert and oriented Heart rate and rhythm Lungs clear Results & Data Results & Data Vital Signs (Past 12 Hours) Vital Signs Temp Pulse Resp BP Pulse Ox O2 Del Method 06/05/23 06:25 36.7 C 111 H 20 159/76 H 99 Room Air
[2023-06-05] MEDS ORDERED: DEXAMETHASONE SOD INJ 4 MG/ML VIAL ONE (08:35)
[2023-06-05] MEDS ORDERED: FLOSEAL HEMOSTATIC MATRIX 10ML TOP ONE (08:46)
[2023-06-05] MEDS ORDERED: ePHEDrine sulfate 50 MG/ML AMP ONE (08:53)
[2023-06-05] MEDS ORDERED: PHENYLEPHRINE HCL 10 MG/ML VIAL ONE (09:11)
[2023-06-05] MEDS ORDERED: SUGAMMADEX SODIUM 200 MG/2 ML VIAL IV ONE (10:17)
--- NOTE | 2023-06-05 10:38 | Fluoroscopy Report ---
FL lumbar spine 2-3V CLINICAL HISTORY: T10-L2 Decompression; Hardware removal,L1-S1 instrumentation COMPARISON STUDY: Lumbar spine fluoroscopic images May 26, 2016. FLUOROSCOPY TIME: 33 seconds. Ka, r: 29.49 mGy FLUOROSCOPIC IMAGES: 2 FINDINGS: Exact localization is difficult given partial visualization of the lumbar spine. Multilevel decompression and fusion are noted. Discectomy is noted. Surgical drain is in place. Visualized port ions of the hardware are intact. IMPRESSION: Fluoroscopy provided during multilevel decompression and fusion. ACT 112: Negative or not required by law. Electronically signed by: Supa Hermosillo M.D. 06/05/2023 10:36 AM
--- NOTE | 2023-06-05 10:41 | Operative Report ---
Post Operative Report Pre & Post Diagnosis Operation Date: 06/05/23 07:45 Pre-Op Diagnosis: Lumbar spinal stenosis with claudication Morbid obesity Post-Op Diagnosis: Same I identified the patient and participated in the time-out.: Yes Procedure Operation Date: 06/05/23 07:45 Actual Procedures #1 decompression T11-T12 T12-L1. #2 posterior spinal fusion T10-L1. #3 placed posterior instrumentation T10-T12 with connectors at L1-L2. #4 interbody fusion T12-L1. #5 the 9 x 26 mm T12-L1. #6 placement locally harvested morselized graft at the posterior lateral gutters. #7 placement I factor in the body space infuse collagen sponge, mass graft in the posterior lateral gutters. Surgeon Chandana James, DO Mail Machine Operator None Estimated Blood Loss 300 Findings See Below The patient is 5 foot 4 weighing over 102 kg with a BMI in excess of 38. Patient's body habitus did contribute to significant technical difficulty and at least 50% increased operative time. Specimens None Indications This is a 67-year-old female presents manage diagnosis of failed course of nonoperative care is here for surgical invention. Description of Procedure Patient was met with identified informed consent obtained. Patient was then taken to the operative suite underwent ablation placed in a prone position on the Roge table top of the Dm frame. All bony promises well-padded eyes inspected to ensure no external pressure responded. This point the thoracolumbar spine was prepped and draped sterile fashion. Sharp dissection with the assistance of Bovie cautery from the joint exposing the lamina transverse processes of T10-V50-N72 and instrumentation at L1-L2. I then performed a complete laminectomy of T12 and T11 including bilateral medial facetectomy and foraminotomies addressing severe spinal stenosis. Pedicle screws were then placed in T10-T11 and T12 and the afsaneh between L1 and L2 exposed from overgrowth of bone and connector was attached. By way of a transforaminal approach on the left at the complete discectomy of T12-L1 was performed endplates guided subcortical bleeding bone and a 9 x 26 mm spiral cage with I factor tapped in position. Appropriate size rods were then contoured and locked into position bilaterally. Transverse processes of Q63-Q51-C15 L1-L2 bur to subcortical bleeding bone. Infuse collagen sponge on mass graft local graft placed in the posterior gutters. 15 round HOLLY drain inserted. The incision was then closed with 1 regular fascia 2-0 Vicryl subcutaneously and 4 Monocryl for final skin closure. Steri-Strips sterile dressing placed. Patient was then taken to PACU stable condition. Please note spinal cord monitoring was utilized at the procedure no changes noted. I attest to the content of the Intraoperative Record and any orders documented therein. Any exceptions are noted below.
--- NOTE | 2023-06-05 11:35 | Anesthesiology Progress Note ---
Date of Service June 05, 2023 Anesthesia Post Procedure Vital Signs Vital Signs: Temp Pulse Pulse Resp BP Pulse Ox O2 Del Method 06/05/23 11:30 36.2 C L 97 H 12 111/74 94 Room Air 06/05/23 11:20 96 H 18 104/56 L 96 Room Air 06/05/23 11:10 95 H 16 111/56 L 99 Oxymask 06/05/23 11:00 97 H 16 120/66 99 Oxymask 06/05/23 10:50 99 H 15 100/67 100 Oxymask 06/05/23 10:44 36.1 C L 102 H 20 111/61 100 Oxymask 06/05/23 06:25 36.7 C 111 H 20 159/76 H 99 Room Air O2 Flow Rate 06/05/23 11:30 0 06/05/23 11:20 0 06/05/23 11:10 2 06/05/23 11:00 4 06/05/23 10:50 4 06/05/23 10:44 6 06/05/23 06:25 Pain Intensity Lower Back: Pain Intensity: 1 Transfer of Care Handoff Completed per policy Notes Mental Status: alert / awake / arousable Patient Amnestic to Procedure: Yes Nausea / Vomiting: adequately controlled Pain: adequately controlled Airway Patency, RR, SpO2: stable & adequate BP & HR: stable & adequate Hydration State: stable & adequate Anesthetic Complications: no major complications apparent and Pt Satisfied with anesthetic care
[2023-06-05] MEDS ORDERED: METOCLOPRAMIDE HCL INJ 5 MG/ML 2 ML VIAL IV PRN (12:15)
[2023-06-05] MEDS ORDERED: ACETAMINOPHEN 1,000 MG/100 ML VIAL IV PRN (12:15)
[2023-06-05] MEDS ORDERED: LORazepam 0.5 MG in SYRINGE 0.25 ML IV PRN (12:15)
[2023-06-05] MEDS ORDERED: DO NOT ADMINISTER FLU VACCINE PRN (12:15)
[2023-06-05] MEDS ORDERED: hydrOXYzine HCl 25 MG TAB PO PRN (12:15)
[2023-06-05] MEDS ORDERED: LORazepam 0.5 MG TAB PO PRN (12:15)
[2023-06-05] MEDS ORDERED: ALUMINUM/MAGNESIUM SUSP 30 ML UDC PO PRN (12:15)
[2023-06-05] MEDS ORDERED: FAMOTIDINE 20 MG TAB PO PRN (12:15)
[2023-06-05] MEDS ORDERED: PROMETHAZINE HCL 12.5 MG in SODIUM CHLORIDE 0.9% 50 ML IV PRN (12:15)
[2023-06-05] MEDS ORDERED: HYDROmorphone INJ 0.5 MG/0.5 ML SYR IV PRN (12:15)
[2023-06-05] MEDS ORDERED: MAGNESIUM HYDROXIDE SUSP 30 ML UDC PO PRN (12:15)
[2023-06-05] MEDS ORDERED: ACETAMINOPHEN 500 MG TAB PO PRN (12:15)
[2023-06-05] MEDS ORDERED: DO NOT ADMINISTER PNEUMOCOCCAL VACCINE PRN (12:15)
[2023-06-05] MEDS ORDERED: HYDROmorphone INJ 1 MG/ML SYRINGE IV PRN (12:15)
[2023-06-05] MEDS ORDERED: bisacodyL 10 MG SUPP PR PRN (12:15)
[2023-06-05] MEDS ORDERED: NALOXONE HCL 0.4 MG/1 ML VIAL/CARP IV PRN (12:15)
[2023-06-05] MEDS ORDERED: diphenhydrAMINE Capsule 25 MG CAP PO PRN (12:15)
[2023-06-05] MEDS ORDERED: SOD PHOSPHATE/SOD BIPHOSPHATE ENEMA 132 ML BTL PR PRN (12:15)
[2023-06-05] MEDS: LACTATED RINGER'S 1,000 ML IV SCH ×2 (12:44→19:37)
--- NOTE | 2023-06-05 12:46 | Hospitalist Consultation ---
Date of Consultation June 05, 2023 Assessment & Plan (1) Neurogenic claudication due to lumbar spinal stenosis: - POD #0, underwent T11-L1 decompression fusion by Dr. James Pain management, bowel regimen and DVT ppx per the primary team - PT/OT consults, pt is planning on outpatient therapy - Follow am CBC to monitor for acute blood loss , last hgb was 12.7 on 05/22 - Antiemetics for nausea - already had zofran, give reglan IV now stat, possible due to anesthesia vs pain medications. Will reassess. Continue clear liquids as tolerated (2) Diabetes mellitus, type 2: - ISS with Accu-Cheks ACHS -Last A1c was 6.2 on 05/22 -HH/DM diet (3) COPD, moderate: -Chronic, stable, continue montelukast, Breo elliptica, albuterol inhaler as needed wheezing (4) RLS (restless legs syndrome): -May continue Requip -Chronic, stable (5) Dyslipidemia: -Chronic, stable, continue atorvastatin 80 mg (6) GERD (gastroesophageal reflux disease): -Continue omeprazole -Chronic, stable (7) Depression: -Continue amitriptyline DVT PPx:- teds, scds FEN/GI: DM/HH diet CODE: Full code Lines: PIV Dispo: From home, likely to remain in the hospital x 1-2 days Thank you for involving us in the care of Ms. Hooper. Please do not hesitate to call with questions or concerns. At this time medicine service will follow along. (8) Obesity: Supervising Physician Co-Signing Physician Notes Pt seen and examined by myself, Pattie Barnhart MD on the day of service. Care was coordinated with Barbara Chou PA-C. 67yoF seen post-op after decompression spinal surgery. At the time of my exam was comfortable. Having episodes of N/V, persistent despite zofran treatment. Started on IV Reglan, continue prn Monitor postop hgb, pain control DVT prophylaxis per primary team. Otherwise as above History of Present Illness Reason for Consultation: Medical management Requesting Physician: Dr. James Attending Physician: Chandana James DO History of Present Illness This is a 67-year-old female with PMHx of DM type II, COPD, GERD, HLD, IBS, depression, who presents for elective thoracic T11, T12, L1 decompression fusion by Dr. James. She is nauseous currently, denies acute pain but got dilaudid IV and zofran a short time ago. Pt is actively vomiting at bedside and is sweating. Pt took her morning medications today. Notes has not had a BM since Monday and uses metamucil regularly. she is agreeable to medications tomorrow for constipation. We discussed pain meds side effects of slowing the gut down and causing increased constipation. Pt lives at home with her and anticipates PT/OT at home. Allergies Allergy/AdvReac Type Severity Reaction Status Date / Time morphine AdvReac Mild Migraines Verified 06/05/23 06:32 Home Medications Medication Instructions Recorded Confirmed Type albuterol sulfate 90 mcg/actuation 2 inh inhalation Q6H PRN Wheezing 01/05/21 06/05/23 History breath activated powder inhaler,sensor amitriptyline 50 mg tablet 50 mg PO HS 01/05/21 06/05/23 History ascorbic acid (vitamin C) 1,000 mg 2,000 mg PO QAM 01/05/21 06/05/23 History tablet (Vitamin C) atorvastatin 80 mg tablet (Lipitor) 80 mg PO PM 01/05/21 06/05/23 History bupropion HCl 300 mg 24 hr tablet, 300 mg PO QAM 01/05/21 06/05/23 History extended release fluticasone propionate 50 2 spray intranasal QAM 01/05/21 06/05/23 History mcg/actuation nasal spray,suspension furosemide 40 mg tablet 40 mg PO QAM 01/05/21 06/05/23 History montelukast 10 mg tablet 10 mg PO QAM 01/05/21 06/05/23 History multivitamin 1 tab PO QAM 01/05/21 06/05/23 History omeprazole 20 mg tablet,delayed 20 mg PO BID 01/05/21 06/05/23 History release ropinirole 1 mg tablet 1 mg PO HS 01/05/21 06/05/23 History vitamin B complex 1 tab PO QAM 01/05/21 06/05/23 History vitamin E 268 mg (400 unit) capsule 400 unit PO BID 01/05/21 06/05/23 History acetaminophen 500 mg tablet 1,000 mg PO Q8 PRN Pain 05/11/23 06/05/23 History (Tylenol Extra Strength) fluticasone furoate 100 1 inh inhalation QAM 05/11/23 06/05/23 History mcg-vilanterol 25 mcg/dose inhalation powder (Breo Ellipta) lutein 20 mg-zeaxanthin 1,000 mcg 1 cap PO QAM 05/11/23 06/05/23 History capsule niacin 500 mg tablet 500 mg PO BID 05/11/23 06/05/23 History omega-3 fatty acids-fish oil 684 1 cap PO BID 05/11/23 06/05/23 History mg-1,200 mg capsule,delayed release varenicline 1 mg tablet (Chantix) 1 mg PO BID 05/11/23 06/05/23 History oxycodone 5 mg tablet 5 mg PO Q6H PRN pain #30 tabs 06/06/23 Rx tramadol 50 mg tablet 50 mg PO Q6H PRN pain, moderate 06/06/23 Rx #30 tabs Patient History Medical History (Updated 06/05/23 @ 15:33 by Barbara Chou PA-C) Hypertension Obesity IBS (irritable bowel syndrome) Arthritis GERD (gastroesophageal reflux disease) controlled Diabetes mellitus, type 2 Currently diet controlled (hx Metformin) Depression Anxiety Migraine Hx Restless leg syndrome Hyperlipidemia Chronic obstructive pulmonary disease stable CKD (chronic kidney disease) stage 3, GFR 30-59 ml/min Scoliosis of lumbosacral spine Surgical History History of esophagogastroduodenoscopy (EGD) S/P total knee replacement Left TKA (02/10/21): SAB x1 attempt + PNB at [facility] History of tonsillectomy History of adenoidectomy History of hysterectomy TATE with BSO History of back surgery L1-S1 decompression/fusion (05/26/16): Grade 1 view, MAC#3, ETT 7.0 at [facility] History of colonoscopy Family History Other No family history of adverse response to anesthesia No known health problems Social History Smoking Status: Former smoker Tobacco Type: Cigarettes Smoking End Date: Quit 03/2023; Second Hand Exposure: Yes (SPOUSE SMOKES); Do You Dip or Chew Tobacco: No; Tobacco Cessation Education Requested by Patient: No Hx Alcohol Use: No Hx Substance Use: No Preferred Language: Nepali Communication Ability: Effective Enterprise Architect Required: No Beliefs That Will Affect Care: None Current Living Situation: Spouse current occupational status: employed Other Information That Helps Us Care for You: No Feels Safe at Home: Yes Safety Concerns: Feels Safe At This Time Assistive Devices: Bedside Commode and Walker Assistive Devices Comment: cane for long distance. Review of Systems Review of Systems: Constitutional: No fever or chills, + diaphoretic with vomiting Eyes: No diplopia, no worsening or blurred vision ENT: normal hearing, no trouble swallowing Respiratory: No cough, sputum, dyspnea at rest or on exertion Cardiovascular: No chest pain, tightness or palpitations Abdomen: No pain, +nausea, +vomiting,+constipation Back: minimal pain currently Musculoskeletal: No joint pain, calf pain, swelling Neurologic: No weakness, numbness/tingling, or balance problems Psychiatric: No anxiety or depression Skin: No rash or itch Physical Exam Physical Exam: General: awake, alert, no apparent distress, obese white female, BMI 38.3, + meghna phoretic Head: Normocephalic, atraumatic ENT: PERRL, EOMI, no pharyngeal exudate, mucous membranes moist Chest: Clear to auscultation, on room air, no adventitious breath sounds Cardiac: Regular rhythm, + tachycardic, no murmur, no JVD, normal peripheral pulses, good capillary refill Abdominal: NABS x 4 quadrants, soft, + nausea, vomiting clear orange liquid s/p eating jello at lunch. nondistended, nontender to palpation, no rebound or guarding Back: Dressing c/d/i, HOLLY drain in place draining blood outs Extremities: Normal inspection, no peripheral edema or erythema, calfs nontender to palpation Psych: Normal mood and affect Neuro: AAO x 3, strength intact bilaterally and rated 5/5, no motor deficits, speech is clear, no peripheral sensory deficits Results & Data Results & Data Vital Signs (Past 12 Hours) Vital Signs Temp Pulse Pulse Resp BP Pulse Ox O2 Del Method 06/05/23 12:41 36.7 C 93 H 16 96/59 L 96 Room Air 06/05/23 12:10 36.9 C 98 H 16 94/53 L 94 Room Air 06/05/23 12:00 36.2 C L 99 H 15 112/68 93 Room Air 06/05/23 11:45 36.2 C L 98 H 12 97/60 L 96 Room Air 06/05/23 11:30 36.2 C L 97 H 12 111/74 94 Room Air 06/05/23 11:20 96 H 18 104/56 L 96 Room Air 06/05/23 11:10 95 H 16 111/56 L 99 Oxymask 06/05/23 11:00 97 H 16 120/66 99 Oxymask 06/05/23 10:50 99 H 15 100/67 100 Oxymask 06/05/23 10:44 36.1 C L 102 H 20 111/61 100 Oxymask 06/05/23 06:25 36.7 C 111 H 20 159/76 H 99 Room Air O2 Flow Rate 06/05/23 12:41 06/05/23 12:10 06/05/23 12:00 0 06/05/23 11:45 0 06/05/23 11:30 0 06/05/23 11:20 0 06/05/23 11:10 2 06/05/23 11:00 4 06/05/23 10:50 4 06/05/23 10:44 6 06/05/23 06:25 Laboratory Results 06/05/23 06/05/23 06/05/23 12:31 10:47 06:35 POC Glucose 142 H 144 H 121 H Blood Type Antibody Screen 06/05/23 06:25 POC Glucose Blood Type B Positive Antibody Screen NEGATIVE
[2023-06-05] MEDS: ONDANSETRON 4 MG OD TAB PO PRN (12:49)
[2023-06-05] MEDS ORDERED: METOCLOPRAMIDE HCL INJ 5 MG/ML 2 ML VIAL IV STA (13:42)
[2023-06-05] MEDS: ceFAZolin 2000MG 2,000 MG/15 ML SYR IV SCH ×2 (16:53→23:42)
[2023-06-05] MEDS ORDERED: SCOPOLAMINE 1 MG TDSY TD ONE (17:28)
[2023-06-05] MEDS: CHECK SCOPOLAMINE PATCH PLACEMENT SCH ×2 (17:33→23:41)
[2023-06-05] MEDS: PANTOprazole 40 MG TAB PO SCH (19:38)
[2023-06-05] MEDS: ATORVASTATIN 40 MG TAB PO SCH (19:39)
[2023-06-05] MEDS: rOPINIRole HCL 1 MG TABLET PO SCH (19:39)
[2023-06-05] MEDS: TOCOPHERYL, DL-ALPHA 400 UNITS 180 MG CAP PO SCH (19:39)
[2023-06-05] MEDS: AMITRIPTYLINE HCL 50 MG TAB PO SCH (19:40)
[2023-06-05] MEDS: DOCUSATE SODIUM/SENNA 50/8.6MG TAB PO SCH (19:40)
--- OUTSIDE RECORDS SUMMARY | 2023-06-05 21:17 | External Medical Summary | Summary of Care ---
Author Name Unknown Organization [facility] Address [address] [place] [address] Phone [phone] Care Team Providers Care Cable Supervisor Name Role Phone Natasha Rascon MD Primary Care Provide r Reason for Visit * Reason Comments Medication Refill Encounter Details Date Type Department Care Team (Late st Contact Info) Description 06/04/2023 Refill Family Medicine [address] [phone] Natasha Rascon MD [address] [place] [id number] Moderate COPD (chronic obstructive pulmonary disease) ([facility]) Allergies Active Allergy Reactions Criticality Noted Date Comments Morphine Sulfate Low 09/09/2010 migraines documented as of this encounter (statuses as of 06/05/2023) Medications Medication Sig Dispensed Refills Start Date [...] by mouth in the morning. 0 Active Albuterol Sulfate HFA 108 (90 Base) MCG/ACT Inhalation Aerosol SolutionIndicati ons:Moderate COPD (chronic obstructive pulmonary disease) ([facility]) INHALE TWO PUFFS BY MOUTH EVERY 4 [...] (Singulair)Indic ations:Moderate COPD (chronic obstructive pulmonary disease) ([facility]) TAKE ONE TABLET BY MOUTH EVERY MORNING [...] the evening. 60 Tablet 1 05/24/2023 Active Fluticasone Furoate-Vilanter ol 100-25 MCG/ACT Inhalation Aerosol Powder Breath Activated (BREO ellipta)Indicati ons:Moderate COPD (chronic obstructive pulmonary disease) ([facility]) INHALE ONE PUFF BY MOUTH IN THE MORNING 180 Each 2 06/05/2023 4 Active Fluticasone Furoate-Vilanter ol 100-25 MCG/ACT Inhalation Aerosol Powder Breath Activated (BREO ellipta)Indicati ons:Moderate COPD (chronic obstructive pulmonary disease) ([facility]) INHALE ONE PUFF BY MOUTH IN THE MORNING 180 Each 3 12/23/2022 3 Discontinue d(Refill) documented as of this encounter (statuses as of 06/05/2023) Active Problems Problem Noted Date Diagnosed Date [...] as of this encounter (statuses as of 06/05/2023) Resolved Problems Problem Noted Date Diagnosed Date [...] as of this encounter (statuses as of 06/05/2023) Immunizations Name Administration Dates Next Due COVID-19 mRNA, LNP-s, No Pre serve, 2-Dose Series (Moderna) 01/07/2022,05/19/2021,10/09/2020,09/11 COVID-19, MRNA-LNP, 23-24, P F, 30 MCG/0.3 mL, 12 YRS AND ABOVE, IM (SuVolta-Comirnaty) 04/18/2023 Covid-19, Mrna, Lnp-s, Pf, B ivalent, 50 Mcg, IM, 12 yrs and above (Moderna) 04/25/2022 Pneumococcal Conjugate Vacc, 13 Valent (Prevnar) 08/02/2016 Pneumococcal Conjugate Vacci ne, 20-valent ([id number]) 12/17/2021 Pneumococcal Polysaccharide PPV23 (Pneumovax) 01/03/2012 SEASONAL [...] Days Cigarettes 1 33 Smokeless Tobacco: Never Comments:Trying to quit. Abo ut 3/4 PPD now 06/21/22 Alcohol Use Standard [...] on file documented as of this encounter Miscellaneous Notes * Telephone Encounter - Caitlyn Sandoval [facility] - 06/05/2023 7:27 AM ESTSigned Prescriptions: Disp Refills Fluticasone Furoate-Vilanterol 100-25 MCG/*180 Ea*2 Sig: INHALEONE PUFF BY MOUTH IN THE MORNINGAuthorizing Provider: NATASHA RASCON User: CAITLYN SANDOVAL documented in this encounter Plan of Treatment Upcoming Encounters Date Type Department Care Team (Late st Contact Info) Description 06/27/2023 8:40 AM EST Office Visit Family Medicine [address] [place] [phone] Nhung Haddad PA-C [address] [place] [address] [place] [phone] 12/25/2023 10:00 AM EDT Imaging Radiology [address] [place] [phone] 12/25/2023 11:00 AM EDT Office Visit [facility] Medicine [address] [place] [phone] Natasha Rascon MD [address] [place] [address] [place] [phone] Scheduled Procedures Name Priority Associated Diagnoses Date/Ti me COLONOSCOPY FLEXIBLE PROXIMAL DIAGNOSTIC Recall History of colon polyps Health Maintenance Due Date Last Done Comments DISCUSS TOBACCO CESSATION (REFER TO SMARTSET #0321) 1955 Alpha-1 Antitrypsin 1973 Depression Screening 12/11/2021 [...] exists LUNG CANCER SCREENING - USE SMARTSET 17870 Completed 01/19/2023, 01/18/2022 Influenza Vaccine (FLU shot) [...] as of this encounter Visit Diagnoses Diagnosis Moderate COPD (chronic obstructive pulmonary disease) (HCC) Chronic airway obstruction, not elsewhere classified documented in this encounter Care Teams Cable Supervisor Relationship Specialty Start Date End Date Natasha Rascon MD [address] [place] [address] [place] [phone] PCP - General Family Medicine 06/22/22 documented as of this encounter
[2023-06-06] MEDS: POLYETHYLENE (MIRALAX) 17 GM PACK PO SCH ×3 (05:42→17:58)
[2023-06-06 06:35] LABS: Basophils # (auto) 0.03 K/uL (0.00-0.20); Basophils % (auto) 0.3 %; Hematocrit (blood only) 29.2 % (37.0-47.0); Hemoglobin 9.9 g/dl (12.0-16.0); Immature Granulocytes # (auto) 0.06 K/uL (0.01-0.20); Immature Granulocytes % (auto) 0.6 %; Lymphocytes # (auto) 2.35 K/uL (1.20-3.40); Lymphocytes % (auto) 21.6 %; Mean Corpuscular Hemoglobin 29.6 pg (25.0-34.0); Mean Corpuscular Hgb Conc 33.9 g/dL (32.0-36.0); Mean Corpuscular Volume 87.4 fL (80.0-100.0); Mean Platelet Volume 9.5 fL (9.4-12.4); Monocytes # (auto) 1.24 K/uL (0.11-0.59); Monocytes % (auto) 11.4 %; Neutrophils # (auto) 7.22 K/uL (1.40-6.50); Neutrophils % (auto) 66.1 %; Platelet Count 228 K/uL (130-400); RDW Standard Deviation 44.9 fL (36.4-46.3); Red Blood Count 3.34 M/uL (4.20-5.40)
[2023-06-06] MEDS: LACTATED RINGER'S 1,000 ML IV SCH (07:01)
[2023-06-06 07:22] LABS: Calcium 8.3 mg/dl (8.6-10.3); Potassium 4.1 mmol/L (3.5-5.1)
[2023-06-06 07:28] LABS: BUN Creatinine Ratio 22.3 (10-20); Creatinine Clr Calc Pharmacy 62.5 ml/min; Est GFR (African American) 65.1 ml/min; Est GFR (Non-African American) 56.2 ml/min
--- NOTE | 2023-06-06 08:15 | Orthopedic Progress Note ---
Date of Service June 06, 2023 Assessment & Plan (1) Neurogenic claudication due to lumbar spinal stenosis: Plan: At this time we will initiate physical therapy monitor HOLLY output hopefully discharge home in the next few days. Admission and Anticipated Discharge Date Admission Date: June 05, 2023 Subjective Back pain controlled leg pain improved Physical Exam Physical Exam: Patient is currently bed. She is comfortable. Is constricted testing. Results & Data Vital Signs (Past 12 Hours) Vital Signs Temp Pulse Resp BP Pulse Ox O2 Del Method 06/06/23 07:38 36.9 C 99 H 16 107/69 94 Room Air 06/06/23 05:04 96 Room Air 06/06/23 03:09 103 H 16 108/65 95 Room Air 06/06/23 02:49 36.9 C 102 H 16 105/68 92 Room Air 06/05/23 23:50 96 Room Air 06/05/23 22:28 36.7 C 107 H 16 117/76 93 Room Air Queries Orthopedic Spine Acute Posthemorrhagic Anemia: Yes Obesity: Yes
[2023-06-06] MEDS: oxyCODONE HCL IR 5 MG TAB (IMMEDIATE RELEASE) PO PRN ×2 (08:45→13:37)
[2023-06-06] MEDS: MONTELUKAST SODIUM 10 MG TABLET PO SCH (08:47)
[2023-06-06] MEDS: TOCOPHERYL, DL-ALPHA 400 UNITS 180 MG CAP PO SCH ×2 (08:47→19:51)
[2023-06-06] MEDS: VITAMIN B COMPLEX TAB PO SCH (08:47)
[2023-06-06] MEDS: FUROSEMIDE 40 MG TAB PO SCH (08:47)
[2023-06-06] MEDS: PANTOprazole 40 MG TAB PO SCH ×2 (08:47→19:51)
[2023-06-06] MEDS: MULTIVITAMIN TAB PO SCH (08:47)
[2023-06-06] MEDS: dexAMETHasone 6 MG in SYRINGE 0 ML IV SCH (08:47)
[2023-06-06] MEDS: FLUTICASONE/VILANTEROL 100/25MCG 14 PUFFS/INHALER INH SCH (08:47)
[2023-06-06] MEDS: ASCORBIC ACID 500 MG TAB PO SCH (08:48)
[2023-06-06] MEDS: buPROPion XL 300 MG TABCR PO SCH (08:48)
[2023-06-06] MEDS: CHECK SCOPOLAMINE PATCH PLACEMENT SCH ×2 (08:48→17:58)
[2023-06-06] MEDS: traMADol HCL 50 MG TABLET PO PRN (10:24)
--- NOTE | 2023-06-06 15:11 | Hospitalist Progress Note ---
Date of Service June 06, 2023 Assessment & Plan (1) Neurogenic claudication due to lumbar spinal stenosis: Plan: -Acute blood loss anemia underwent T11-L1 decompression fusion by Dr. James on June 05, 2023 Pain management, bowel regimen and DVT ppx per the primary team - PT/OT consults, pt is planning on outpatient therapy - Follow am CBC to monitor for acute blood loss , last hgb was 12.7 on 05/22 -Hemoglobin in a.m. 9.9. Monitor as outpatient after she recovers from surgery. (2) Diabetes mellitus, type 2: Plan: - ISS with Accu-Cheks ACHS -Last A1c was 6.2 on 05/22 -HH/DM diet (3) COPD, moderate: Plan: -Chronic, stable, continue montelukast, Breo elliptica, albuterol inhaler as needed wheezing (4) RLS (restless legs syndrome): Plan: -May continue Requip -Chronic, stable (5) Dyslipidemia: Plan: -Chronic, stable, continue atorvastatin 80 mg (6) GERD (gastroesophageal reflux disease): Plan: -Continue omeprazole -Chronic, stable (7) Depression: Plan: -Continue amitriptyline DVT PPx:- teds, scds FEN/GI: DM/HH diet CODE: Full code Lines: PIV Dispo: From home, likely to remain in the hospital x 1-2 days Please note the above document was generated using voice recognition software. It may contain grammatical, syntax or spelling errors. Any formal questions or concerns about the content, text or information contained within the body of this dictation should be directly addressed to the provider for clarification (8) Obesity: Admission and Anticipated Discharge Date Admission Date: June 05, 2023 Subjective Patient seen and examined at bedside. She worked with PT OT; Parsons catheter was taken out. Review of Systems Review of Systems: All systems reviewed & are unremarkable except as noted in Subjective Physical Exam Physical Exam: Constitutional: Awake alert oriented x 3. Not in any distress. Respiratory: normal respiratory effort, lungs clear to auscultation, no wheeze, rales, rhonchi. Normal insp/exp effort, no accessory muscle use Cardiovascular: RRR, no murmur, no edema Vessels: no JVD or carotid bruit Chest: normal inspection of chest Abdomen: normal bowel sounds, soft, nontender, no hepatosplenomegaly Musculoskeletal: no cyanosis or clubbing, extremities motor strength 5/5. HOLLY drain in place. Skin: no rashes, warm and dry normal turgor Neurologic: PERRL, EOMI, accommodation nl, no face palsy, no dysarthria CN's II- XI intact bilaterally and moves all extremities Psychiatric: A+Ox3, euthymic affect Results & Data Results & Data Vital Signs (Past 12 Hours) Vital Signs Temp Pulse Resp BP Pulse Ox O2 Del Method 06/06/23 11:14 37 C 102 H 16 124/74 94 Room Air 06/06/23 07:38 36.9 C 99 H 16 107/69 94 Room Air 06/06/23 05:04 96 Room Air 06/06/23 03:09 103 H 16 108/65 95 Room Air Laboratory Results Laboratory Results WBC 10.90 K/ul (4.8-10.8) H 06/06/23 05:54 RBC 3.34 M/uL (4.20-5.40) L 06/06/23 05:54 Hgb 9.9 g/dl (12.0-16.0) L 06/06/23 05:54 Hct 29.2 % (37.0-47.0) L 06/06/23 05:54 MCV 87.4 fL (80.0-100.0) 06/06/23 05:54 MCH 29.6 pg (25.0-34.0) 06/06/23 05:54 MCHC 33.9 g/dL (32.0-36.0) 06/06/23 05:54 RDW Std Deviation 44.9 fL (36.4-46.3) 06/06/23 05:54 RDW Coeff of Fatemeh 14.0 % (11.5-14.5) 06/06/23 05:54 Plt Count 228 K/uL (130-400) 06/06/23 05:54 MPV 9.5 fL (9.4-12.4) 06/06/23 05:54 Immature Gran % (Auto) 0.6 % 06/06/23 05:54 Neut % (Auto) 66.1 % 06/06/23 05:54 Lymph % (Auto) 21.6 % 06/06/23 05:54 [place] % (Auto) 11.4 % 06/06/23 05:54 Eos % (Auto) 0.0 % 06/06/23 05:54 Baso % (Auto) 0.3 % 06/06/23 05:54 Neut # (Auto) 7.22 K/uL (1.40-6.50) H 06/06/23 05:54 Lymph # (Auto) 2.35 K/uL (1.20-3.40) 06/06/23 05:54 [place] # (Auto) 1.24 K/uL (0.11-0.59) H 06/06/23 05:54 Eos # (Auto) 0.00 K/uL (0.00-0.50) 06/06/23 05:54 Baso # (Auto) 0.03 K/uL (0.00-0.20) 06/06/23 05:54 Immature Gran # (Auto) 0.06 K/uL (0.01-0.20) 06/06/23 05:54 Sodium 138 mmol/L (136-145) 06/06/23 05:54 Potassium 4.1 mmol/L (3.5-5.1) 06/06/23 05:54 Chloride 106 mmol/L (98-107) 06/06/23 05:54 Carbon Dioxide 25 mmol/L (21-32) 06/06/23 05:54 Anion Gap 7 (3-11) 06/06/23 05:54 BUN 23 mg/dl (6-23) 06/06/23 05:54 Creatinine 1.03 mg/dl (0.6-1.2) 06/06/23 05:54 Est Cr Clr Drug Dosing 62.5 ml/min 06/06/23 05:54 Est GFR ( Amer) 65.1 ml/min 06/06/23 05:54 Est GFR (Non-Af Amer) 56.2 ml/min 06/06/23 05:54 BUN/Creatinine Ratio 22.3 (10-20) H 06/06/23 05:54 Glucose 107 mg/dl (70-99(Fasting)) H 06/06/23 05:54 POC Glucose 167 mg/dl (70-99) H 06/05/23 20:51 Calcium 8.3 mg/dl (8.6-10.3) L 06/06/23 05:54 Blood Type B Positive 06/05/23 06:25 Antibody Screen NEGATIVE 06/05/23 06:25 Impressions Lumbar Spine X-Ray 06/05/23 00:00 FL lumbar spine 2-3V CLINICAL HISTORY: T10-L2 Decompression; Hardware removal,L1-S1 instrumentation COMPARISON STUDY: Lumbar spine fluoroscopic images May 26, 2016. FLUOROSCOPY TIME: 33 seconds. Ka, r: 29.49 mGy FLUOROSCOPIC IMAGES: 2 FINDINGS: Exact localization is difficult given partial visualization of the lumbar spine. Multilevel decompression and fusion are noted. Discectomy is noted. Surgical drain is in place. Visualized portions of the hardware are intact. IMPRESSION: Fluoroscopy provided during multilevel decompression and fusion. ACT 112: Negative or not required by law. Electronically signed by: Supa Hermosillo M.D. 06/05/2023 10:36 AM
[2023-06-06] MEDS: rOPINIRole HCL 1 MG TABLET PO SCH (19:50)
[2023-06-06] MEDS: DOCUSATE SODIUM/SENNA 50/8.6MG TAB PO SCH (19:51)
[2023-06-06] MEDS: AMITRIPTYLINE HCL 50 MG TAB PO SCH (19:51)
[2023-06-06] MEDS: ATORVASTATIN 40 MG TAB PO SCH (19:51)
[2023-06-07] MEDS: CHECK SCOPOLAMINE PATCH PLACEMENT SCH ×3 (01:07→17:05)
[2023-06-07] MEDS: POLYETHYLENE (MIRALAX) 17 GM PACK PO SCH ×4 (01:08→17:06)
[2023-06-07] MEDS: oxyCODONE HCL IR 5 MG TAB (IMMEDIATE RELEASE) PO PRN (05:09)
[2023-06-07] MEDS: FLUTICASONE/VILANTEROL 100/25MCG 14 PUFFS/INHALER INH SCH (07:56)
[2023-06-07] MEDS: ASCORBIC ACID 500 MG TAB PO SCH (07:56)
[2023-06-07] MEDS: FUROSEMIDE 40 MG TAB PO SCH (07:57)
[2023-06-07] MEDS: buPROPion XL 300 MG TABCR PO SCH (07:57)
[2023-06-07] MEDS: TOCOPHERYL, DL-ALPHA 400 UNITS 180 MG CAP PO SCH ×2 (07:57→21:06)
[2023-06-07] MEDS: dexAMETHasone 6 MG in SYRINGE 0 ML IV SCH (07:57)
[2023-06-07] MEDS: MULTIVITAMIN TAB PO SCH (07:58)
[2023-06-07] MEDS: MONTELUKAST SODIUM 10 MG TABLET PO SCH (07:58)
[2023-06-07] MEDS: PANTOprazole 40 MG TAB PO SCH ×2 (07:58→21:06)
[2023-06-07] MEDS: VITAMIN B COMPLEX TAB PO SCH (07:58)
[2023-06-07] MEDS: traMADol HCL 50 MG TABLET PO PRN (08:44)
--- NOTE | 2023-06-07 10:27 | Orthopedic Progress Note ---
Date of Service June 07, 2023 Assessment & Plan (1) Neurogenic claudication due to lumbar spinal stenosis: Plan: This time we will continue physical therapy monitor HOLLY output anticipate possible discharge home tomorrow. Admission and Anticipated Discharge Date Admission Date: June 05, 2023 Subjective Patient's back pain is controlled. She is tolerating physical therapy. Physical Exam Physical Exam: Patient is currently in the chair. She appears comfortable. Discussed when to testing. Results & Data Vital Signs (Past 12 Hours) Vital Signs Temp Pulse Resp BP Pulse Ox O2 Del Method 06/07/23 07:24 36.7 C 102 H 17 120/72 95 Room Air Queries Orthopedic Spine Acute Posthemorrhagic Anemia: Yes Obesity: Yes
[2023-06-07] MEDS: ONDANSETRON 4 MG OD TAB PO PRN (11:43)
--- NOTE | 2023-06-07 12:41 | XRay Report ---
KUB CLINICAL HISTORY: Constipation. COMPARISON STUDY: None. FINDINGS: Postoperative findings within the spine are incidentally noted. Surgical drain is in place. Large amount of stool within the ascending and transverse colon is present. Small amount of stool wi thin the rectum is present. There is mild distention of the colon without evidence for a bowel obstru ction. IMPRESSION: 1. Large amount of stool within the ascending and transverse colon. Small amount of stool within the rectum. 2. Mild colonic dilatation. This may be related to stool within the colon or represent an ileus. No e vidence for a bowel obstruction. ACT 112: Negative or not required by law. Electronically signed by: Supa Hermosillo M.D. 06/07/2023 12:40 PM
[2023-06-07] MEDS ORDERED: DOCUSATE SODIUM 100 MG CAP PO SCH (13:35)
--- NOTE | 2023-06-07 19:21 | Hospitalist Progress Note ---
Date of Service June 07, 2023 Assessment & Plan (1) Neurogenic claudication due to lumbar spinal stenosis: Plan: -Acute blood loss anemia --S/P T11-L1 decompression fusion by Dr. James on June 05, 2023 Pain management, bowel regimen and DVT ppx per the primary team - PT/OT consults, pt is planning on outpatient therapy - Hb 9.9. Monitor CBC Continue Wound care Constipation --KUB: Large amount of stool within the ascending and transverse colon. Small amount of stool within the rectum. Mild colonic dilatation. This may be related to stool within the colon or represent an ileus. No evidence for a bowel obstruction. Continue bowel regimen Encouraged to ambulate Monitor for ileus (2) Diabetes mellitus, type 2: Plan: - ISS with Accu-Cheks ACHS -Last A1c was 6.2 on 05/22 -HH/DM diet (3) COPD, moderate: Plan: -Chronic, stable, continue montelukast, Breo elliptica, albuterol inhaler as needed (4) RLS (restless legs syndrome): Plan: -May continue Requip -Chronic, stable (5) Dyslipidemia: Plan: -Chronic, stable, continue atorvastatin 80 mg (6) GERD (gastroesophageal reflux disease): Plan: -Continue PPI -Chronic, stable (7) Depression: Plan: -Continue amitriptyline DVT Px Teds, scds per Primary CODE STATUS: Full code (8) Obesity: Admission and Anticipated Discharge Date Admission Date: June 05, 2023 Subjective Patient is seen and examined at bedside Back pain is controlled Reports nausea and constipation Denies any abdominal pain, dyspnea, chest pain No other complaints Review of Systems Review of Systems: All systems reviewed & are unremarkable except as noted in Subjective Physical Exam Physical Exam: Physical Exam: Vitals signs as noted above General Appearance:Obese, no apparent distress Head: normocephalic, Atraumatic Eyes: normal inspection, EOMI Neck: supple, Trachea midline Respiratory/Chest: Normal breath sounds, CTA, No accessory muscle use Cardiovascular: S1, S2, No murmur Abdomen/GI:Soft, Non tender, Bowel sounds present Back:+surgical site, +drain Extremities/Musculoskeletal:normal inspection, no edema Neurologic/Psych:AAOX3, grossly no focal neurological deficits Skin: normal color, warm Results & Data Results & Data Vital Signs (Past 12 Hours) Vital Signs Temp Pulse Resp BP Pulse Ox O2 Del Method 06/07/23 15:03 36.9 C 96 H 16 117/72 97 Room Air 06/07/23 07:24 36.7 C 102 H 17 120/72 95 Room Air
[2023-06-07] MEDS ORDERED: SENNA 8.6 MG TAB PO SCH (21:00)
[2023-06-07] MEDS: rOPINIRole HCL 1 MG TABLET PO SCH (21:05)
[2023-06-07] MEDS: AMITRIPTYLINE HCL 50 MG TAB PO SCH (21:06)
[2023-06-07] MEDS: DOCUSATE SODIUM/SENNA 50/8.6MG TAB PO SCH (21:07)
[2023-06-07] MEDS: ATORVASTATIN 40 MG TAB PO SCH (21:07)
[2023-06-08] MEDS: POLYETHYLENE (MIRALAX) 17 GM PACK PO SCH ×3 (00:12→11:43)
[2023-06-08] MEDS: CHECK SCOPOLAMINE PATCH PLACEMENT SCH ×2 (00:12→08:28)
[2023-06-08 07:37] LABS: Hematocrit (blood only) 28.5 % (37.0-47.0); Hemoglobin 9.5 g/dl (12.0-16.0); Mean Corpuscular Hemoglobin 29.9 pg (25.0-34.0); Mean Corpuscular Hgb Conc 33.3 g/dL (32.0-36.0); Mean Corpuscular Volume 89.6 fL (80.0-100.0); Mean Platelet Volume 9.5 fL (9.4-12.4); Platelet Count 214 K/uL (130-400); RDW Coefficient of Variation 13.6 % (11.5-14.5); RDW Standard Deviation 44.5 fL (36.4-46.3); Red Blood Count 3.18 M/uL (4.20-5.40); White Blood Count 11.93 K/ul (4.8-10.8)
[2023-06-08] MEDS: FLUTICASONE/VILANTEROL 100/25MCG 14 PUFFS/INHALER INH SCH (08:35)
[2023-06-08] MEDS: MULTIVITAMIN TAB PO SCH (08:35)
[2023-06-08] MEDS: VITAMIN B COMPLEX TAB PO SCH (08:36)
[2023-06-08] MEDS: MONTELUKAST SODIUM 10 MG TABLET PO SCH (08:36)
[2023-06-08] MEDS: buPROPion XL 300 MG TABCR PO SCH (08:36)
[2023-06-08] MEDS: TOCOPHERYL, DL-ALPHA 400 UNITS 180 MG CAP PO SCH (08:36)
[2023-06-08] MEDS: ASCORBIC ACID 500 MG TAB PO SCH (08:37)
[2023-06-08] MEDS: FUROSEMIDE 40 MG TAB PO SCH (08:37)
[2023-06-08] MEDS: PANTOprazole 40 MG TAB PO SCH (08:37)
[2023-06-08] MEDS: dexAMETHasone 6 MG in SYRINGE 0 ML IV SCH (08:41)
[2023-06-08] MEDS: traMADol HCL 50 MG TABLET PO PRN (08:47)
--- NOTE | 2023-06-08 10:32 | Discharge Summary ---
Date of Service June 08, 2023 Admission HPI Per Admitting Provider This is a 67-year-old female who presents for persistent back and bilaterally pain and failing since course of nonoperative care she is here for surgical invention. Principal Diagnosis Lumbar spinal stenosis with neurogenic claudication Discharge Data Allergies Allergy/AdvReac Type Severity Reaction Status Date / Time morphine AdvReac Mild Migraines Verified 06/05/23 06:32 Consultations 06/05/23 12:15 Consult Hospitalist Routine Procedures Performed Operation Date: 06/05/23 07:45 Actual Procedures p T10-L1 Fusion, T11 and L1 Decompression(Not Applicable) - Chandana James DO Ordered Studies 06/05/23 FL lumbar spine 2-3V Routine Hospital Course (1) Neurogenic claudication due to lumbar spinal stenosis: Patient with lumbar decompression fusion tolerated as well as taken to orthopedic for postoperative. Postop patient progressed slowly but appropriately throughout her stay increasing her ability to ambulate and tolerate steps. HOLLY drain decreased probably. Excellent strength testing. Pain well-controlled. Subsidy discharged home. Discharge orders instructions from the chart for further review. Total Time Total Time Spent Total Time Spent (In Minutes): 20 minutes Discharge Plan Discharge Items Patient Disposition: Home - Home Health Services Reason For Visit: Thoracic Disc Disease, Spinal stenosis, History of Discharge Diagnosis: Thoracolumbar spinal stenosis with neurogenic claudication Activity: As commented below Non-emergency contact: Primary Care Provider Call non-emergency contact if: you have any medication questions Follow-up/Referrals: Mc South MD [Primary Care Provider] - Diet: Regular Addtl Attending Provider Instructions: ACTIVITY RECOMMENDATIONS: SELF CARE INSTRUCTIONS AFTER THORACIC/LUMBAR FUSIONS 1. You may walk to your tolerance. It is good exercise for your legs and back. Expect some back and intermittent leg aches and pains. 2. You may perform "counter-top" level activities (make a sandwich, an with a project, etc.). 3. No bending or lifting of more than 10 pounds or back twisting of any nature (roll like a log when turning in bed). 4. You may ride in a car for 20-30 minutes at a time. No driving until after your first visit with your doctor. 5. Frequent changes of position and restricting sitting to 30 minutes at a time will help limit the amount of back spasms and stiffness you may experience. 6. You may discontinue the use of ambulatory aids (cane, crutches, etc.) once your strength and confidence allow. 7. You may security test engineer the shower and let water strike your incision when you arrive home at least once daily. Do not take a tub bath, sit in a hot tub or go into a swimming pool until after your first recheck in the office. SPECIAL CARE INSTRUCTIONS: VERY IMPORTANT TO READ AND REVIEW A. Your surgical incision has been closed with a cosmetic suture under the skin that will dissolve in about 6 weeks. In 14 days, you can use a pair of clean scissors and cut the suture that is left outside of the skin at the ends of your incision. 1. The small skin tapes can be removed 7 days after surgery if they have not fallen off by that point. 2. You may keep the wound open to air as much as possible to promote healing after post-op day number 5 unless told otherwise by your doctor. 3. If you think the wound looks like it is becoming infected (redness or worsening drainage) and/or you are experiencing fever, chill or worsening back pain and muscle spasms, contact the office so that we may evaluate you as soon as possible. B. Complications are uncommon, but please contact us if you have any signs or symptoms of: 1. wound infection (fever higher than 102.5 degrees F, redness, separation of wound, drainage, or increasing pain from the incision) 2. blood clots in legs (pain, swelling, redness and warmth in legs) 3. urinary tract infection (fever higher than 102.5 degrees F, burning upon urination or increased frequency of urination) 4. nerve problems (inability to walk on your toes or heels, numbness, loss of bowel or bladder control) 5. any other symptoms that concern you C. Please call the office at if you have any concerns or questions about your operation or recovery. D. No smoking! Smoking drastically decreases the chance of a solid fusion. E. Do not take any anti-inflammatory medications (Indocin, Advil, Motrin, Aspirin, Naprosyn, etc.) as these may inhibit the chance of a solid fusion. Tylenol is okay to take for pain. MANAGING PAIN AFTER SPINAL SURGERY 1. Narcotic medication is intended for short-term use and will be provided for surgical pain. Surgical pain usually lasts for a period of 4-6 weeks. Narcotic medication includes Percocet, Vicodin, Darvocet, Tylenol #3 or Lortab. 2. Longer-term pain is more appropriately treated with non-narcotic medication such as Tylenol ES. 3. Muscle spasm is not appropriately treated with narcotics. Muscle relaxers such as Soma, Flexeril or Skelaxin can be used along with Tylenol ES. 4. Remember that we all live with some "aches and pains". This is not unusual or uncommon after an injury or as we get older. a. Back pain is expected and may include muscle spasms for 4 to 6 weeks after surgery. The pain should gradually improve. If the pain worsens for no apparent reason, please contact the office. b. Intermittent leg pain may also be experienced and should not be concerned about unless it worsens for no apparent reason. If so, please contact the office. 5. We will provide appropriate medication within the normal guidelines of their prescribed use. We will also be very cautious and aware of potential abuse and extended duration of patients' medication needs. a. Pain medications are for your comfort and to assist with sleep and rest so that the tissue can heal. They are not provided in order to return to normal activity and should not be used through the day. To do so or worsening pain at night can result from ongoing tissue damage and development of tolerance to the prescribed medicine. 6. Please allow 2-3 days to process refills. Prescriptions will not be mailed but must be picked up at the office. FOLLOW UP VISIT: Keep your scheduled follow-up appointment. Any questions, please call the office at . Pending Studies at Discharge: No Stand-Alone Forms: [facility], [facility] C[facility] Medications and DC Order Prescriptions: New tramadol 50 mg tablet 50 mg PO Q6H PRN (Reason: pain, moderate) Qty: 30 0RF oxycodone 5 mg tablet 5 mg PO Q6H PRN (Reason: pain) Qty: 30 0RF Continued multivitamin Tablet 1 tab PO QAM furosemide 40 mg Tablet 40 mg PO QAM atorvastatin [Lipitor] 80 mg Tablet 80 mg PO PM vitamin B complex Tablet 1 tab PO QAM vitamin E 400 unit Capsule 400 unit PO BID bupropion HCl 300 mg Tablet Extended Release 24 Hr 300 mg PO QAM omeprazole 20 mg Tablet,Delayed Release (Dr/Ec) 20 mg PO BID albuterol sulfate 90 mcg/actuation Aero Powdr Breath Act W/Sensor 2 inh INHALATION Q6H PRN (Reason: Wheezing) ropinirole 1 mg Tablet 1 mg PO HS montelukast 10 mg Tablet 10 mg PO QAM ascorbic acid (vitamin C) [Vitamin C] 1,000 mg Tablet 2,000 mg PO QAM amitriptyline 50 mg Tablet 50 mg PO HS fluticasone propionate 50 mcg/actuation [place],Suspension 2 spray INTRANASAL QAM acetaminophen [Tylenol Extra Strength] 500 mg tablet 1,000 mg PO Q8 PRN (Reason: Pain) niacin 500 mg Tablet 500 mg PO BID omega-3 fatty acids-fish oil 684-1,200 mg Capsule,Delayed Release(Dr/Ec) 1 cap PO BID fluticasone furoate-vilanterol [Breo Ellipta] 100-25 mcg/dose Blister With Device 1 inh INHALATION QAM lutein-zeaxanthin 20 mg- 1,000 mcg Capsule 1 cap PO QAM varenicline [Chantix] 1 mg Tablet 1 mg PO BID Discharge Orders: Discharge Order (Routine); Ordered 06/08/23 Ordered By: Chandana James Admission Data Admit Date/Time: 06/05/23 10:45 Attending Provider: Chandana James Admit Provider: Chandana James Primary Care Provider: Mc South Other Providers: Heide Oseguera; Marin Franco
--- NOTE | 2023-06-08 13:46 | Hospitalist Progress Note ---
Date of Service June 08, 2023 Assessment & Plan (1) Neurogenic claudication due to lumbar spinal stenosis: Plan: -Acute blood loss anemia --S/P T11-L1 decompression fusion by Dr. James on June 05, 2023 Pain management, bowel regimen and DVT ppx per the primary team - PT/OT consults, pt is planning on outpatient therapy - Hb 9.9> 9.5 Monitor CBC Continue Wound care Constipation --KUB: Large amount of stool within the ascending and transverse colon. Small amount of stool within the rectum. Mild colonic dilatation. This may be related to stool within the colon or represent an ileus. No evidence for a bowel obstruction. Continue bowel regimen Encouraged to ambulate Monitor for ileus Had multiple flatus today Advised to minimize narcotic use as able (2) Diabetes mellitus, type 2: Plan: - ISS with Accu-Cheks ACHS -Last A1c was 6.2 on 05/22 -HH/DM diet (3) COPD, moderate: Plan: -Chronic, stable, continue montelukast, Breo elliptica, albuterol inhaler as needed (4) RLS (restless legs syndrome): Plan: -May continue Requip -Chronic, stable (5) Dyslipidemia: Plan: -Chronic, stable, continue atorvastatin 80 mg (6) GERD (gastroesophageal reflux disease): Plan: -Continue PPI -Chronic, stable (7) Depression: Plan: -Continue amitriptyline DVT Px Teds, scds per Primary CODE STATUS: Full code (8) Obesity: Admission and Anticipated Discharge Date Admission Date: June 05, 2023 Subjective Patient is seen and examined at bedside + Flatus Nausea resolved No significant back pain at surgical site No other complaints Denies any abdominal pain, dyspnea, chest pain Review of Systems Review of Systems: All systems reviewed & are unremarkable except as noted in Subjective Physical Exam Physical Exam: Physical Exam: Vitals signs as noted above General Appearance:Obese, no apparent distress Head: normocephalic, Atraumatic Eyes: normal inspection, EOMI Neck: supple, Trachea midline Respiratory/Chest: Normal breath sounds, CTA, No accessory muscle use Cardiovascular: S1, S2, No murmur Abdomen/GI:Soft, Non tender, Bowel sounds present Back:+surgical site, +drain Extremities/Musculoskeletal:normal inspection, no edema Neurologic/Psych:AAOX3, grossly no focal neurological deficits Skin: normal color, warm Results & Data Results & Data Vital Signs (Past 12 Hours) Vital Signs Temp Pulse Resp BP Pulse Ox O2 Del Method 06/08/23 07:55 36.8 C 91 H 17 121/71 96 Room Air 06/08/23 07:15 Room Air Laboratory Results Short CBC 06/08/23 Range/Units 07:07 WBC 11.93 H (4.8-10.8) K/ul Hgb 9.5 L (12.0-16.0) g/dl Hct 28.5 L (37.0-47.0) % Plt Count 214 (130-400) K/uL
== END 2023-06-08 13:59 | disposition home health service (06) | DRG 454 ==
LOC: ASU 06:08 → 3E 10:45